=== PATIENT | female | born 1960 | race Caucasian/White ===

== ENCOUNTER 2020-05-02 19:15 | Inpatient (IN) | payer OTHER ==
[2020-05-02 20:12] LABS: #Basophils 0.1 10x3/uL (0.0-0.2); #Eosinphils 0.2 10x3/uL (0.0-0.5); #Monocytes 0.8 10x3/uL (0.0-1.1); #Neutrophils 5.4 10x3/uL (1.5-8.4); %Basophils 0.6 % (0.0-2.0); %Eosinophils 1.9 % (0.0-6.0); %Lymphocytes 28.7 % (18.0-47.0); %Monocytes 9.3 % (0.0-10.0); %Neutrophils 59.3 % (40.0-75.0); Hemoglobin 12.1 g/dL (12.0-15.5); Mean Corpuscular HGB CONC 35.7 g/dL (32.0-36.0); Mean Corpuscular Hemoglobin 32.4 pg (27.0-33.0); Mean Corpuscular Volume 90.6 fl (81.6-98.3); Mean Platelet Volume 8.2 fl (7.4-10.4); Platelet Count 426 10x3/uL (150-450); RBC Distribution Width 11.2 % (11.5-14.5); Red Blood Cell (RBC) Count 3.74 10x6/uL (3.90-5.03)
[2020-05-02 20:28] LABS: ALT (SGPT) 24 U/L (8-55); AST (SGOT) 30 U/L (5-34); Albumin 4.6 g/dL (3.5-5.0); Alkaline Phosphatase 100 U/L (40-110); Anion Gap 14 mmol/L (10-20); BUN (Urea Nitrogen) 17 mg/dL (9.8-20.1); Bilirubin, Total 0.4 mg/dL (0.2-1.2); Calc. Creatinine Clearance 0 mL/min (70-130); Calcium 9.8 mg/dL (7.8-10.44); Carbon Dioxide 26 mmol/L (22-29); Chloride 83 mmol/L (98-107); Globulin 3.4 g/dL (2.4-3.5); Glucose 251 mg/dL (70-105); Potassium 4.6 mmol/L (3.5-5.1)
[2020-05-02 20:35] LABS: Sodium 118 mmol/L (136-145)
[2020-05-02] MEDS ORDERED: Ketorolac Tromethamine 30 MG/ML VIAL ONE (20:50)
[2020-05-02] MEDS ORDERED: Ondansetron PF 4 MG/2 ML Vial ONE (20:50)
[2020-05-02 22:24] LABS: Bilirubin Neg (Negative); Blood, Urine Negative (Negative); Glucose, Urine (Dipstick) Normal (Negative); Ketone, Urine Negative (Negative); Leukocyte 100 (Negative); Nitrite Negative (Negative); Protein, Urine (Dipstick) 100 mg/dl (Neg-Trace); Specific Gravity, Urine 1.015 (1.002-1.036); Urobilinogen Normal mg/dL (Less than 2)
[2020-05-02 22:38] LABS: Clarity Hazy (Clear)
[2020-05-02 22:40] LABS: Bacteria/HPF 2+ HPF (None Seen); RBC/HPF 0-3 HPF (0-3)
[2020-05-02 22:42] LABS: Mucous/LPF Rare LPF (<2+)
[2020-05-02] MEDS ORDERED: Ondansetron PF 4 MG/2 ML Vial IVP PRN (23:30)
[2020-05-02] MEDS ORDERED: Calcium Carbonate 500 MG ChewTAB PO PRN (23:30)
[2020-05-02] MEDS ORDERED: Dextrose 5% in Water 1,000 ML IV PRN (23:30)
[2020-05-02] MEDS ORDERED: Dextrose 50% Abboject 50 ML SYRINGE SLOW IVP PRN (23:30)
[2020-05-02] MEDS ORDERED: Acetaminophen 325 MG TAB PO PRN (23:30)
[2020-05-02] MEDS ORDERED: Senokot S 8.6-50 MG TAB PO PRN (23:30)
[2020-05-02] MEDS ORDERED: Lorazepam 2 MG/ML VIAL SLOW IVP PRN (23:42)
[2020-05-02] MEDS ORDERED: Pantoprazole 40 MG VIAL IVP SCH (23:45)
[2020-05-03] MEDS: HumaLOG 300 UNITS/3 ML VIAL SC PRN ×5 (01:40→21:33)
[2020-05-03] MEDS: HYDROcodone/Acetaminophen 5/325 mg Tablet PO PRN ×4 (01:42→23:40)
[2020-05-03] MEDS: Zolpidem Tartrate 5 MG TAB PO PRN (01:42)
[2020-05-03 02:00] LABS: Amphetamine Not Detected (NotDetected); Barbiturates Screen Not Detected (NotDetected); Benzodiazepine Screen Not Detected (NotDetected); Cocaine Metabolite Screen Not Detected (NotDetected); Methadone Not Detected (NotDetected); Methamphetamine Not Detected (NotDetected); Opiate Screen Not Detected (NotDetected); Oxycodone Screen Not Detected (NotDetected); Phencyclidine (PCP) Not Detected (NotDetected); THC/Cannabinoid Screen Not Detected (NotDetected); Tricyclic Screen Not Detected (NotDetected)
[2020-05-03 06:37] LABS: Anion Gap 15 mmol/L (10-20); BUN (Urea Nitrogen) 17 mg/dL (9.8-20.1); Calc. Creatinine Clearance 85 mL/min (70-130); Calcium 9.3 mg/dL (7.8-10.44); Carbon Dioxide 24 mmol/L (22-29); Chloride 88 mmol/L (98-107); Glucose 177 mg/dL (70-105); Potassium 4.1 mmol/L (3.5-5.1); Sodium 123 mmol/L (136-145)
[2020-05-03] MEDS ORDERED: Apixaban 5 MG TAB PO SCH (09:00)
[2020-05-03] MEDS ORDERED: FLU VACC QS2020-21(6MOS UP)/PF 60 MCG/0.5 ML SYRINGE IM ONE (09:00)
[2020-05-03] MEDS: Multivitamin W/ Minerals 1 TAB PO SCH (09:37)
[2020-05-03] MEDS: levETIRAcetam 500 MG TAB PO SCH ×2 (09:37→21:33)
[2020-05-03] MEDS: Flecainide 50 MG TAB PO SCH (09:38)
[2020-05-03] MEDS: sulfaSALAzine 500 MG TAB PO SCH ×2 (09:38→21:33)
[2020-05-03] MEDS: DULoxetine 30 MG CAP PO SCH (09:39)
[2020-05-03] MEDS: Amlodipine 5 MG TAB PO SCH (09:39)
[2020-05-03] MEDS: Magnesium Oxide 400 MG TAB PO SCH (09:39)
[2020-05-03] MEDS: Cholecalciferol 1,000 UNITS (25 MCG) TAB PO SCH (09:40)
[2020-05-03] MEDS: Glimepiride 2 MG TAB PO SCH ×2 (09:40→21:32)
[2020-05-03] MEDS: Lantus 1000 UNITS/10 ML VIAL SC SCH ×2 (09:42→21:32)
[2020-05-03] MEDS: Pantoprazole 40 MG VIAL IVP SCH ×2 (09:42→21:33)
[2020-05-03 09:46] LABS: Potassium, Urine 16.4 mmol/L
[2020-05-03] MEDS: Losartan 25 MG TAB PO SCH (09:50)
[2020-05-03] MEDS: cloNIDine 0.1 MG TAB PO SCH ×3 (09:51→22:08)
[2020-05-03 10:33] LABS: Anion Gap 13 mmol/L (10-20); BUN (Urea Nitrogen) 17 mg/dL (9.8-20.1); Calc. Creatinine Clearance 87 mL/min (70-130); Calcium 9.6 mg/dL (7.8-10.44); Carbon Dioxide 26 mmol/L (22-29); Chloride 89 mmol/L (98-107); Glucose 175 mg/dL (70-105); Potassium 4.3 mmol/L (3.5-5.1); Sodium 124 mmol/L (136-145)
[2020-05-03] MEDS ORDERED: Communication Order-Pharmacy FS SCH (12:30)
[2020-05-03 13:11] LABS: SARS-CoV-2 PCR by NAA Not Detected (NotDetected)
[2020-05-03] MEDS: Clopidogrel Bisulfate 75 MG TAB PO SCH (21:31)
[2020-05-03] MEDS: Cyclobenzaprine 10 MG TAB PO SCH (21:32)
[2020-05-03] MEDS: Simvastatin 10 MG TAB PO SCH (21:33)
[2020-05-03] MEDS: Loratadine 10 MG TAB PO SCH (21:33)
[2020-05-04] MEDS: HYDROcodone/Acetaminophen 5/325 mg Tablet PO PRN ×2 (03:23→21:32)
[2020-05-04] MEDS ORDERED: Sodium Chloride 0.9% 1,000 ML IV SCH (08:00)
[2020-05-04] MEDS: Lantus 1000 UNITS/10 ML VIAL SC SCH ×2 (09:00→23:00)
[2020-05-04] MEDS: sulfaSALAzine 500 MG TAB PO SCH ×2 (09:33→21:31)
[2020-05-04] MEDS: Amlodipine 5 MG TAB PO SCH (09:33)
[2020-05-04] MEDS: Cholecalciferol 1,000 UNITS (25 MCG) TAB PO SCH (09:34)
[2020-05-04] MEDS: Losartan 25 MG TAB PO SCH (09:34)
[2020-05-04] MEDS: Magnesium Oxide 400 MG TAB PO SCH (09:34)
[2020-05-04] MEDS: DULoxetine 30 MG CAP PO SCH ×2 (09:34→10:14)
[2020-05-04] MEDS: levETIRAcetam 500 MG TAB PO SCH ×2 (09:34→21:31)
[2020-05-04] MEDS: Flecainide 50 MG TAB PO SCH (09:34)
[2020-05-04] MEDS: Multivitamin W/ Minerals 1 TAB PO SCH (09:34)
[2020-05-04] MEDS: Pantoprazole 40 MG VIAL IVP SCH ×2 (09:34→21:31)
[2020-05-04] MEDS: cloNIDine 0.1 MG TAB PO SCH ×3 (09:34→21:32)
[2020-05-04 10:31] LABS: Anion Gap 14 mmol/L (10-20); BUN (Urea Nitrogen) 25 mg/dL (9.8-20.1); Calc. Creatinine Clearance 72 mL/min (70-130); Calcium 9.9 mg/dL (7.8-10.44); Carbon Dioxide 29 mmol/L (22-29); Chloride 91 mmol/L (98-107); Glucose 208 mg/dL (70-105); Potassium 5.7 mmol/L (3.5-5.1); Sodium 128 mmol/L (136-145)
[2020-05-04] MEDS ORDERED: Nitroglycerin 50 MG/250 ML BOT 0 ML ONE (12:29)
[2020-05-04] MEDS ORDERED: Adenosine 6 MG/2 ML VIAL ONE (12:29)
[2020-05-04] MEDS ORDERED: Heparin 10,000 UNITS/ 10 ML VIAL ONE (12:29)
[2020-05-04] MEDS ORDERED: Lidocaine 1% (PF) 30 ML VIAL ONE (12:31)
[2020-05-04] MEDS ORDERED: Midazolam HCl 5 mg/5 ml Vial ONE (12:31)
[2020-05-04] MEDS ORDERED: Fentanyl 250 MCG/5 ML VIAL ONE (12:31)
[2020-05-04] MEDS ORDERED: Acetaminophen/Codeine 30-300mg Tablet PO PRN ×2 (13:37)
[2020-05-04] MEDS ORDERED: Nitroglycerin 0.4 MG TAB (25 Tab Bottle) SL PRN (13:37)
[2020-05-04] MEDS: Glimepiride 2 MG TAB PO SCH ×2 (17:00→21:31)
[2020-05-04] MEDS: HumaLOG 300 UNITS/3 ML VIAL SC PRN ×2 (18:10→21:33)
[2020-05-04] MEDS: Loratadine 10 MG TAB PO SCH (21:31)
[2020-05-04] MEDS: Cyclobenzaprine 10 MG TAB PO SCH (21:32)
[2020-05-04] MEDS: Simvastatin 10 MG TAB PO SCH (21:32)
[2020-05-04] MEDS: Clopidogrel Bisulfate 75 MG TAB PO SCH (21:32)
[2020-05-04] MEDS: Zolpidem Tartrate 5 MG TAB PO PRN (21:38)
[2020-05-05] MEDS: HYDROcodone/Acetaminophen 5/325 mg Tablet PO PRN ×2 (01:22→06:09)
[2020-05-05] MEDS: HumaLOG 300 UNITS/3 ML VIAL SC PRN ×2 (06:10→12:21)
[2020-05-05 07:11] LABS: #Eosinphils 0.2 10x3/uL (0.0-0.5); #Monocytes 0.9 10x3/uL (0.0-1.1); #Neutrophils 5.1 10x3/uL (1.5-8.4); %Basophils 0.5 % (0.0-2.0); %Eosinophils 1.7 % (0.0-6.0); %Lymphocytes 28.8 % (18.0-47.0); %Monocytes 10.4 % (0.0-10.0); %Neutrophils 58.3 % (40.0-75.0); Hemoglobin 10.7 g/dL (12.0-15.5); Mean Corpuscular HGB CONC 33.8 g/dL (32.0-36.0); Mean Corpuscular Hemoglobin 32.5 pg (27.0-33.0); Mean Corpuscular Volume 96.4 fl (81.6-98.3); Mean Platelet Volume 8.6 fl (7.4-10.4); Platelet Count 390 10x3/uL (150-450); RBC Distribution Width 11.7 % (11.5-14.5); Red Blood Cell (RBC) Count 3.29 10x6/uL (3.90-5.03); White Blood Cell (WBC) Count 8.7 10x3/uL (3.5-10.5)
[2020-05-05 07:32] LABS: Anion Gap 14 mmol/L (10-20); BUN (Urea Nitrogen) 28 mg/dL (9.8-20.1); Calc. Creatinine Clearance 74 mL/min (70-130); Calcium 9.3 mg/dL (7.8-10.44); Carbon Dioxide 23 mmol/L (22-29); Chloride 98 mmol/L (98-107); Glucose 179 mg/dL (70-105); Potassium 4.6 mmol/L (3.5-5.1); Sodium 130 mmol/L (136-145)
[2020-05-05] MEDS ORDERED: Losartan Potassium 50 MG TAB PO SCH (09:00)
[2020-05-05] MEDS ORDERED: Valsartan 80 MG TAB PO SCH (09:00)
[2020-05-05] MEDS: cloNIDine 0.1 MG TAB PO SCH (09:45)
[2020-05-05] MEDS: sulfaSALAzine 500 MG TAB PO SCH (09:45)
[2020-05-05] MEDS: Glimepiride 2 MG TAB PO SCH (09:45)
[2020-05-05] MEDS: Lantus 1000 UNITS/10 ML VIAL SC SCH (09:45)
[2020-05-05] MEDS: Cholecalciferol 1,000 UNITS (25 MCG) TAB PO SCH (09:45)
[2020-05-05] MEDS: Flecainide 50 MG TAB PO SCH (09:45)
[2020-05-05] MEDS: Multivitamin W/ Minerals 1 TAB PO SCH (09:45)
[2020-05-05] MEDS: levETIRAcetam 500 MG TAB PO SCH (09:45)
[2020-05-05] MEDS: Pantoprazole 40 MG VIAL IVP SCH (09:45)
[2020-05-05] MEDS: Magnesium Oxide 400 MG TAB PO SCH (09:45)
[2020-05-05] MEDS: Amlodipine 5 MG TAB PO SCH (10:01)
[2020-05-05 13:54] VITALS: TEMP 98.1
[2020-05-05 15:24] VITALS: BP 105/57
== END 2020-05-05 16:05 | disposition home or self-care (01) | DRG 641 ==
LOC: CSHERS 19:15 → CSHTELE 23:30 → UNDOADMOB 05-03 00:41 → OBSVTOIN 05-03 00:41 → CSHTELE 05-03 00:41 → INTOOBSV 05-03 00:41
PROVIDERS: ADMIT Student in an Organized Health Care Education/Training Program; ATTEND Family Medicine
PROC: 4A023N7 Measurement of Cardiac Sampling and Pressure, Left Heart, Percutaneous Approach (ICD-10-PCS; principal; 2020-05-04)
PROC: B2111ZZ Fluoroscopy of Multiple Coronary Arteries using Low Osmolar Contrast (ICD-10-PCS; 2020-05-04)
PROC: B2161ZZ Fluoroscopy of Right and Left Heart using Low Osmolar Contrast (ICD-10-PCS; 2020-05-04)
PROC: B4181ZZ Fluoroscopy of Bilateral Renal Arteries using Low Osmolar Contrast (ICD-10-PCS; 2020-05-04)
DX: E87.1 Hypo-osmolality and hyponatremia (principal); K50.90 Crohn's disease, unspecified, without complications; Z68.42 Body mass index [BMI] 45.0-49.9, adult; I13.0 Hypertensive heart and chronic kidney disease with heart failure and stage 1 through stage 4 chronic kidney disease, or unspecified chronic kidney disease; I50.32 Chronic diastolic (congestive) heart failure; I69.954 Hemiplegia and hemiparesis following unspecified cerebrovascular disease affecting left non-dominant side; I25.110 Atherosclerotic heart disease of native coronary artery with unstable angina pectoris; Z20.822 Contact with and (suspected) exposure to COVID-19; I48.0 Paroxysmal atrial fibrillation; G47.33 Obstructive sleep apnea (adult) (pediatric); G40.909 Epilepsy, unspecified, not intractable, without status epilepticus; E66.01 Morbid (severe) obesity due to excess calories; E11.22 Type 2 diabetes mellitus with diabetic chronic kidney disease; N18.30 Chronic kidney disease, stage 3 unspecified; F41.9 Anxiety disorder, unspecified; F32.9 Major depressive disorder, single episode, unspecified; Z91.040 Latex allergy status; Z79.4 Long term (current) use of insulin; Z79.899 Other long term (current) drug therapy; M79.7 Fibromyalgia; R11.2 Nausea with vomiting, unspecified; K44.9 Diaphragmatic hernia without obstruction or gangrene; M45.9 Ankylosing spondylitis of unspecified sites in spine; E78.2 Mixed hyperlipidemia; I70.1 Atherosclerosis of renal artery
CPT/HCPCS: 36245; 36252; 36415; 36416; 74176; 76705; 80048; 80053; 80306; 81003; 81015; 82436; 83036; 83690; 83930; 83935; 84133; 84300; 84443; 84484; 85025; 87086; 87635; 93005; 93306; 93458; 96361; 96374; 96375; 99152; C1760; C9113; J0153; J1644; J1815; J1885; J2001; J2250; J2405; J3010; U0003; U0005

== ENCOUNTER 2021-08-15 10:19 | Observation (INO) | payer OTHER ==
[2021-08-15 11:53] LABS: #Basophils 0.1 10x3/uL (0.0-0.2); #Eosinphils 0.2 10x3/uL (0.0-0.5); #Monocytes 0.9 10x3/uL (0.0-1.1); #Neutrophils 8.6 10x3/uL (1.5-8.4); %Basophils 0.6 % (0.0-2.0); %Eosinophils 1.4 % (0.0-6.0); %Lymphocytes 14.7 % (18.0-47.0); %Monocytes 7.7 % (0.0-10.0); %Neutrophils 75.3 % (40.0-75.0); Hemoglobin 11.8 g/dL (12.0-15.5); Mean Corpuscular HGB CONC 35.6 g/dL (32.0-36.0); Mean Corpuscular Hemoglobin 33.2 pg (27.0-33.0); Mean Corpuscular Volume 93.2 fl (81.6-98.3); Mean Platelet Volume 8.6 fl (7.4-10.4); Platelet Count 424 10x3/uL (150-450); RBC Distribution Width 12.2 % (11.5-14.5); Red Blood Cell (RBC) Count 3.55 10x6/uL (3.90-5.03); White Blood Cell (WBC) Count 11.4 10x3/uL (3.5-10.5)
[2021-08-15 12:11] LABS: Bilirubin Neg (Negative); Blood, Urine Negative (Negative); Clarity Clear (Clear); Glucose, Urine (Dipstick) Normal (Negative); Ketone, Urine Negative (Negative); Leukocyte 25 (Negative); Nitrite Negative (Negative); Protein, Urine (Dipstick) 100 mg/dl (Neg-Trace); Urobilinogen Normal mg/dL (Less than 2)
[2021-08-15 12:12] LABS: ALT (SGPT) 11 U/L (8-55); AST (SGOT) 16 U/L (5-34); Albumin 4.5 g/dL (3.4-4.8); Alkaline Phosphatase 111 U/L (40-110); Anion Gap 16 mmol/L (10-20); BUN (Urea Nitrogen) 27 mg/dL (9.8-20.1); Bilirubin, Total 0.2 mg/dL (0.2-1.2); Calc. Creatinine Clearance 0 mL/min (70-130); Calcium 9.9 mg/dL (7.8-10.44); Carbon Dioxide 25 mmol/L (23-31); Chloride 90 mmol/L (98-107); Estimated GFR 36; Globulin 3.6 g/dL (2.4-3.5); Glucose 218 mg/dL (80-115); Potassium 5.1 mmol/L (3.5-5.1); Protein, Total 8.1 g/dL (5.8-8.1); Sodium 126 mmol/L (136-145)
[2021-08-15 12:17] LABS: RBC/HPF 0-3 HPF (0-3)
[2021-08-15 12:18] LABS: Bacteria/HPF Rare-Few HPF (None Seen)
[2021-08-15 14:48] LABS: SARS-CoV-2 NAA Rapid Test Not Detected (NotDetected)
[2021-08-15 16:26] LABS: Anion Gap 18 mmol/L (10-20); BUN (Urea Nitrogen) 27 mg/dL (9.8-20.1); Calc. Creatinine Clearance 0 mL/min (70-130); Calcium 9.8 mg/dL (7.8-10.44); Carbon Dioxide 22 mmol/L (23-31); Chloride 90 mmol/L (98-107); Estimated GFR 38; Glucose 180 mg/dL (80-115); Potassium 4.8 mmol/L (3.5-5.1); Sodium 125 mmol/L (136-145)
[2021-08-15 16:29] LABS: Troponin I Less than 0.010 ng/mL (< 0.028)
[2021-08-15] MEDS ORDERED: Acetaminophen 650 MG Suppository PR PRN (17:17)
[2021-08-15] MEDS ORDERED: Cosyntropin 250 MCG VIAL SLOW IVP SCH (17:30)
[2021-08-15 18:02] LABS: Sodium 129 mmol/L (136-145)
[2021-08-15] MEDS ORDERED: Dextrose 5% in Water 1,000 ML IV PRN (18:06)
[2021-08-15] MEDS ORDERED: Dextrose 50% Abboject 50 ML SYRINGE SLOW IVP PRN (18:06)
[2021-08-15 18:23] LABS: Troponin I Less than 0.010 ng/mL (< 0.028)
[2021-08-15 19:35] VITALS: BMI 46.3
[2021-08-15] MEDS ORDERED: levETIRAcetam 500 MG TAB PO SCH (21:00)
[2021-08-15] MEDS ORDERED: Sodium Chloride 0.9% 1,000 ML ONE (21:17)
[2021-08-15] MEDS: Simvastatin 10 MG TAB PO SCH (21:21)
[2021-08-15] MEDS: Flecainide 50 MG TAB PO SCH (21:21)
[2021-08-15] MEDS: levETIRAcetam 500 MG TAB PO SCH (21:22)
[2021-08-15] MEDS: Lantus 1000 UNITS/10 ML VIAL SC SCH (21:23)
[2021-08-15] MEDS: Insulin Regular 300 UNITS/3 ML VIAL SC PRN (21:25)
[2021-08-15] MEDS: Sodium Chloride 0.9% 1,000 ML IV SCH (21:27)
[2021-08-15] MEDS: Acetaminophen 325 MG TAB PO PRN (21:42)
[2021-08-15] MEDS ORDERED: Zolpidem Tartrate 5 MG TAB PO SCH (23:15)
[2021-08-15 23:46] LABS: Sodium 132 mmol/L (136-145)
[2021-08-16 05:44] LABS: #Basophils 0.1 10x3/uL (0.0-0.2); #Eosinphils 0.1 10x3/uL (0.0-0.5); #Monocytes 0.7 10x3/uL (0.0-1.1); #Neutrophils 8.2 10x3/uL (1.5-8.4); %Basophils 0.4 % (0.0-2.0); %Eosinophils 0.6 % (0.0-6.0); %Lymphocytes 20.9 % (18.0-47.0); %Monocytes 6.2 % (0.0-10.0); %Neutrophils 71.5 % (40.0-75.0); Anion Gap 18 mmol/L (10-20); BUN (Urea Nitrogen) 27 mg/dL (9.8-20.1); Calc. Creatinine Clearance 74 mL/min (70-130); Calcium 9.4 mg/dL (7.8-10.44); Carbon Dioxide 22 mmol/L (23-31); Chloride 95 mmol/L (98-107); Estimated GFR 38; Glucose 227 mg/dL (80-115); Hemoglobin 11.1 g/dL (12.0-15.5); Mean Corpuscular HGB CONC 35.6 g/dL (32.0-36.0); Mean Corpuscular Hemoglobin 32.8 pg (27.0-33.0); Mean Corpuscular Volume 92.3 fl (81.6-98.3); Mean Platelet Volume 8.7 fl (7.4-10.4); Platelet Count 416 10x3/uL (150-450); Potassium 4.5 mmol/L (3.5-5.1); Red Blood Cell (RBC) Count 3.38 10x6/uL (3.90-5.03); Sodium 130 mmol/L (136-145); White Blood Cell (WBC) Count 11.4 10x3/uL (3.5-10.5)
[2021-08-16] MEDS: Insulin Regular 300 UNITS/3 ML VIAL SC PRN ×4 (07:38→22:43)
[2021-08-16] MEDS: Lantus 1000 UNITS/10 ML VIAL SC SCH ×2 (09:47→22:42)
[2021-08-16] MEDS: Clopidogrel Bisulfate 75 MG TAB PO SCH (09:48)
[2021-08-16] MEDS: Flecainide 50 MG TAB PO SCH ×2 (09:48→22:38)
[2021-08-16] MEDS: levETIRAcetam 500 MG TAB PO SCH ×2 (09:48→22:37)
[2021-08-16] MEDS: Acetaminophen 325 MG TAB PO PRN ×2 (10:07→19:40)
[2021-08-16 11:55] LABS: Sodium 131 mmol/L (136-145)
[2021-08-16] MEDS: Sodium Chloride 0.9% 1,000 ML IV SCH (16:26)
[2021-08-16] MEDS ORDERED: Metoprolol Tartrate 50 MG TAB PO SCH (17:00)
[2021-08-16] MEDS ORDERED: Zolpidem Tartrate 5 MG TAB PO SCH (22:30)
[2021-08-16] MEDS: Simvastatin 10 MG TAB PO SCH (22:38)
[2021-08-16] MEDS: Metoprolol Tartrate 25 MG TAB PO SCH (22:39)
[2021-08-17 05:40] LABS: #Basophils 0.1 10x3/uL (0.0-0.2); #Eosinphils 0.2 10x3/uL (0.0-0.5); #Monocytes 0.8 10x3/uL (0.0-1.1); #Neutrophils 5.4 10x3/uL (1.5-8.4); %Basophils 0.6 % (0.0-2.0); %Eosinophils 1.9 % (0.0-6.0); %Lymphocytes 31.5 % (18.0-47.0); %Monocytes 8.5 % (0.0-10.0); %Neutrophils 57.1 % (40.0-75.0); Mean Corpuscular HGB CONC 35.6 g/dL (32.0-36.0); Mean Corpuscular Hemoglobin 33.1 pg (27.0-33.0); Mean Corpuscular Volume 93.1 fl (81.6-98.3); Mean Platelet Volume 8.9 fl (7.4-10.4); Platelet Count 359 10x3/uL (150-450); Red Blood Cell (RBC) Count 3.32 10x6/uL (3.90-5.03); White Blood Cell (WBC) Count 9.4 10x3/uL (3.5-10.5)
[2021-08-17 05:53] LABS: Anion Gap 16 mmol/L (10-20); BUN (Urea Nitrogen) 24 mg/dL (9.8-20.1); Calc. Creatinine Clearance 93 mL/min (70-130); Calcium 9.2 mg/dL (7.8-10.44); Carbon Dioxide 22 mmol/L (23-31); Chloride 98 mmol/L (98-107); Estimated GFR 50; Glucose 202 mg/dL (80-115); Potassium 4.2 mmol/L (3.5-5.1); Sodium 132 mmol/L (136-145)
[2021-08-17] MEDS: Insulin Regular 300 UNITS/3 ML VIAL SC PRN ×2 (06:36→13:29)
[2021-08-17] MEDS: Lantus 1000 UNITS/10 ML VIAL SC SCH (08:51)
[2021-08-17] MEDS: Metoprolol Tartrate 25 MG TAB PO SCH (08:52)
[2021-08-17] MEDS: Clopidogrel Bisulfate 75 MG TAB PO SCH (08:52)
[2021-08-17] MEDS: levETIRAcetam 500 MG TAB PO SCH (08:52)
[2021-08-17] MEDS: Flecainide 50 MG TAB PO SCH (08:52)
[2021-08-17 12:54] VITALS: BP 174/84; TEMP 98.3
== END 2021-08-17 15:03 | disposition home or self-care (01) ==
LOC: CSHERS 10:19 → CSHTELE 13:49 → UNDOADMOB 19:28 → CSHTELE 19:28
PROVIDERS: ADMIT Internal Medicine; ATTEND Internal Medicine
DX: R55 Syncope and collapse (principal); R42 Dizziness and giddiness; E87.1 Hypo-osmolality and hyponatremia; I13.0 Hypertensive heart and chronic kidney disease with heart failure and stage 1 through stage 4 chronic kidney disease, or unspecified chronic kidney disease; E11.22 Type 2 diabetes mellitus with diabetic chronic kidney disease; N18.30 Chronic kidney disease, stage 3 unspecified; I50.30 Unspecified diastolic (congestive) heart failure; N17.9 Acute kidney failure, unspecified; I25.118 Atherosclerotic heart disease of native coronary artery with other forms of angina pectoris; I48.0 Paroxysmal atrial fibrillation; E78.2 Mixed hyperlipidemia; G40.909 Epilepsy, unspecified, not intractable, without status epilepticus; K50.90 Crohn's disease, unspecified, without complications; G47.33 Obstructive sleep apnea (adult) (pediatric); E11.42 Type 2 diabetes mellitus with diabetic polyneuropathy; E11.51 Type 2 diabetes mellitus with diabetic peripheral angiopathy without gangrene; E11.43 Type 2 diabetes mellitus with diabetic autonomic (poly)neuropathy; G31.84 Mild cognitive impairment of uncertain or unknown etiology; I49.5 Sick sinus syndrome; Z86.16 Personal history of COVID-19; Z86.73 Personal history of transient ischemic attack (TIA), and cerebral infarction without residual deficits; Z91.19 Patient's noncompliance with other medical treatment and regimen; Z79.02 Long term (current) use of antithrombotics/antiplatelets; Z79.4 Long term (current) use of insulin; Z79.84 Long term (current) use of oral hypoglycemic drugs; Z79.899 Other long term (current) drug therapy; Z88.8 Allergy status to other drugs, medicaments and biological substances; Z91.040 Latex allergy status; Z95.5 Presence of coronary angioplasty implant and graft; Z98.1 Arthrodesis status; Z20.822 Contact with and (suspected) exposure to COVID-19
CPT/HCPCS: 36415; 36416; 70450; 71045; 72125; 72170; 80048; 80053; 80400; 81003; 81015; 83880; 83930; 83935; 84300; 84443; 84484; 84540; 84560; 85025; 87077; 87086; 87186; 93005; 94760; G0378; J0834; J1815; J7050; U0002

== ENCOUNTER 2021-08-20 13:57 | Outpatient (CLI) | payer OTHER | END 2021-08-20 13:58 | disposition home or self-care (01) | LOC: CSHMAMMO 13:57 | PROVIDERS: ATTEND Family Medicine | DX: Z12.31 Encounter for screening mammogram for malignant neoplasm of breast (principal); N63.20 Unspecified lump in the left breast, unspecified quadrant; Z80.3 Family history of malignant neoplasm of breast | CPT/HCPCS: 77063; 77067 ==

== ENCOUNTER 2021-08-27 12:38 | Outpatient (CLI) | payer OTHER | END 2021-08-27 12:39 | disposition home or self-care (01) | LOC: CSHULT 12:38 | PROVIDERS: ATTEND Family Medicine | DX: N63.20 Unspecified lump in the left breast, unspecified quadrant (principal) ==

== ENCOUNTER 2021-10-06 16:52 | Emergency (ER) | payer OTHER ==
[2021-10-06 17:31] LABS: #Basophils 0.1 10x3/uL (0.0-0.2); #Eosinphils 0.2 10x3/uL (0.0-0.5); #Monocytes 0.8 10x3/uL (0.0-1.1); %Basophils 0.7 % (0.0-2.0); %Eosinophils 1.8 % (0.0-6.0); %Lymphocytes 29.5 % (18.0-47.0); %Monocytes 7.8 % (0.0-10.0); %Neutrophils 59.8 % (40.0-75.0); Mean Corpuscular HGB CONC 36.1 g/dL (32.0-36.0); Mean Corpuscular Hemoglobin 33.5 pg (27.0-33.0); Mean Corpuscular Volume 92.7 fl (81.6-98.3); Mean Platelet Volume 8.9 fl (7.4-10.4); Platelet Count 390 10x3/uL (150-450); RBC Distribution Width 11.3 % (11.5-14.5); Red Blood Cell (RBC) Count 3.58 10x6/uL (3.90-5.03); White Blood Cell (WBC) Count 10.1 10x3/uL (3.5-10.5)
[2021-10-06 17:34] LABS: ALT (SGPT) 17 U/L (8-55); AST (SGOT) 15 U/L (5-34); Albumin 4.6 g/dL (3.4-4.8); Alkaline Phosphatase 88 U/L (40-110); Anion Gap 16 mmol/L (10-20); BUN (Urea Nitrogen) 23 mg/dL (9.8-20.1); Bilirubin, Total 0.3 mg/dL (0.2-1.2); Calc. Creatinine Clearance 0 mL/min (70-130); Calcium 9.8 mg/dL (7.8-10.44); Carbon Dioxide 22 mmol/L (23-31); Chloride 93 mmol/L (98-107); Estimated GFR 44; Globulin 3.2 g/dL (2.4-3.5); Glucose 229 mg/dL (80-115); Potassium 5.2 mmol/L (3.5-5.1); Protein, Total 7.8 g/dL (5.8-8.1); Sodium 126 mmol/L (136-145)
== END 2021-10-06 18:40 | disposition home or self-care (01) ==
LOC: CSHERS 16:52
DX: I12.9 Hypertensive chronic kidney disease with stage 1 through stage 4 chronic kidney disease, or unspecified chronic kidney disease (principal); N18.4 Chronic kidney disease, stage 4 (severe); R29.810 Facial weakness; I48.91 Unspecified atrial fibrillation; E11.9 Type 2 diabetes mellitus without complications; E78.5 Hyperlipidemia, unspecified; Z86.73 Personal history of transient ischemic attack (TIA), and cerebral infarction without residual deficits; Z79.4 Long term (current) use of insulin
CPT/HCPCS: 36416; 70450; 71045; 80053; 84484; 85025; 93005

== ENCOUNTER 2021-10-10 13:01 | Observation (INO) | payer OTHER ==
[2021-10-10] MEDS ORDERED: Iopamidol 370 76% 100 ML VIAL ONE (13:08)
[2021-10-10 13:57] LABS: #Basophils 0.1 10x3/uL (0.0-0.2); #Eosinphils 0.1 10x3/uL (0.0-0.5); #Monocytes 0.7 10x3/uL (0.0-1.1); #Neutrophils 6.3 10x3/uL (1.5-8.4); %Basophils 0.8 % (0.0-2.0); %Eosinophils 1.3 % (0.0-6.0); %Lymphocytes 21.4 % (18.0-47.0); %Monocytes 7.2 % (0.0-10.0); Hemoglobin 12.1 g/dL (12.0-15.5); Mean Corpuscular HGB CONC 35.4 g/dL (32.0-36.0); Mean Corpuscular Hemoglobin 32.9 pg (27.0-33.0); Mean Corpuscular Volume 92.9 fl (81.6-98.3); Mean Platelet Volume 9.4 fl (7.4-10.4); Platelet Count 377 10x3/uL (150-450); RBC Distribution Width 11.9 % (11.5-14.5); Red Blood Cell (RBC) Count 3.68 10x6/uL (3.90-5.03); White Blood Cell (WBC) Count 9.1 10x3/uL (3.5-10.5)
[2021-10-10 14:29] LABS: ALT (SGPT) 19 U/L (8-55); AST (SGOT) 28 U/L (5-34); Acetaminophen Less than 10.0 mcg/mL (10.0-30.0); Albumin 4.1 g/dL (3.4-4.8); Alcohol Less than 10 mg/dL (Less than 10); Alkaline Phosphatase 123 U/L (40-110); Anion Gap 15 mmol/L (10-20); BUN (Urea Nitrogen) 23 mg/dL (9.8-20.1); Bilirubin, Total 0.2 mg/dL (0.2-1.2); Calc. Creatinine Clearance 0 mL/min (70-130); Calcium 9.2 mg/dL (7.8-10.44); Carbon Dioxide 19 mmol/L (23-31); Chloride 99 mmol/L (98-107); Estimated GFR 46; Globulin 3.8 g/dL (2.4-3.5); Glucose 314 mg/dL (80-115); Potassium 5.1 mmol/L (3.5-5.1); Protein, Total 7.9 g/dL (5.8-8.1); Salicylate Less than 8.0 mg/dL (15.0-30.0); Sodium 128 mmol/L (136-145)
[2021-10-10 14:38] LABS: Bilirubin Neg (Negative); Blood, Urine Negative (Negative); Clarity Clear (Clear); Glucose, Urine (Dipstick) 100 mg/dL (Negative); Ketone, Urine Negative (Negative); Leukocyte 100 (Negative); Nitrite Negative (Negative); Protein, Urine (Dipstick) 30 mg/dl (Neg-Trace); Specific Gravity, Urine 1.005 (1.002-1.036); Urobilinogen Normal mg/dL (Less than 2)
[2021-10-10 14:56] LABS: SARS-CoV-2 NAA Rapid Test Not Detected (NotDetected)
[2021-10-10 14:56] LABS: Bacteria/HPF 2+ HPF (None Seen); RBC/HPF 0-3 HPF (0-3); Squamous Epithelial 0-3 HPF (0-3)
[2021-10-10] MEDS ORDERED: Aspirin 325 MG TAB ONE (16:00)
[2021-10-10 16:45] LABS: Lactic Acid 1.7 mmol/L (0.5-2.2)
[2021-10-10] MEDS ORDERED: Ondansetron PF 4 MG/2 ML Vial IVP PRN (16:47)
[2021-10-10] MEDS ORDERED: Acetaminophen 325 MG TAB PO PRN (16:47)
[2021-10-10] MEDS ORDERED: Ondansetron ODT 4 MG TAB PO PRN (16:47)
[2021-10-10 18:24] VITALS: BMI 43.9
[2021-10-10] MEDS ORDERED: Dextrose 5% in Water 1,000 ML IV PRN (20:06)
[2021-10-10] MEDS ORDERED: Dextrose 50% Abboject 50 ML SYRINGE SLOW IVP PRN (20:06)
[2021-10-10 20:07] LABS: Hemoglobin A1c 8.8 % (4.0-6.0)
[2021-10-10] MEDS ORDERED: Lantus 1000 UNITS/10 ML VIAL SC SCH (20:30)
[2021-10-10] MEDS ORDERED: Flecainide 50 MG TAB PO SCH (20:30)
[2021-10-10] MEDS ORDERED: levETIRAcetam 500 MG TAB PO SCH (20:30)
[2021-10-10] MEDS: Atorvastatin Calcium 40 MG TAB PO SCH (21:00)
[2021-10-10] MEDS: Heparin 5,000 UNITS/ML VIAL SC SCH (21:04)
[2021-10-11] MEDS: HumaLOG 300 UNITS/3 ML VIAL SC PRN ×2 (05:38→17:53)
[2021-10-11] MEDS ORDERED: traMADol HCl 50 MG TAB PO PRN (07:17)
[2021-10-11 07:22] LABS: #Basophils 0.1 10x3/uL (0.0-0.2); #Eosinphils 0.2 10x3/uL (0.0-0.5); #Monocytes 0.9 10x3/uL (0.0-1.1); #Neutrophils 5.2 10x3/uL (1.5-8.4); %Basophils 0.7 % (0.0-2.0); %Lymphocytes 31.7 % (18.0-47.0); %Monocytes 9.4 % (0.0-10.0); %Neutrophils 55.9 % (40.0-75.0); Hemoglobin 11.6 g/dL (12.0-15.5); Mean Corpuscular HGB CONC 35.6 g/dL (32.0-36.0); Mean Corpuscular Hemoglobin 32.8 pg (27.0-33.0); Mean Corpuscular Volume 92.1 fl (81.6-98.3); Platelet Count 351 10x3/uL (150-450); RBC Distribution Width 11.9 % (11.5-14.5); Red Blood Cell (RBC) Count 3.54 10x6/uL (3.90-5.03); White Blood Cell (WBC) Count 9.4 10x3/uL (3.5-10.5)
[2021-10-11 07:36] LABS: Anion Gap 15 mmol/L (10-20); BUN (Urea Nitrogen) 23 mg/dL (9.8-20.1); Calc. Creatinine Clearance 76 mL/min (70-130); Calcium 9.5 mg/dL (7.8-10.44); Carbon Dioxide 25 mmol/L (23-31); Cardiac Risk 6.3 (Less than 4.5); Chloride 100 mmol/L (98-107); Cholesterol 207 mg/dl (< 200 Desired); Estimated GFR 40; Glucose 234 mg/dL (80-115); HDL Cholesterol 33 mg/dL (>60 Neg Risk); LDL Cholesterol, Calculated 111 mg/dL; Potassium 4.7 mmol/L (3.5-5.1); Sodium 135 mmol/L (136-145); Triglycerides 316 mg/dL (Less than 150)
[2021-10-11] MEDS: hydrALAZINE 25 MG TAB PO PRN (09:47)
[2021-10-11] MEDS: Amlodipine 5 MG TAB PO SCH (09:47)
[2021-10-11] MEDS: Clopidogrel Bisulfate 75 MG TAB PO SCH (09:47)
[2021-10-11] MEDS: Losartan 25 MG TAB PO SCH (09:47)
[2021-10-11] MEDS: Flecainide 50 MG TAB PO SCH ×2 (09:47→22:10)
[2021-10-11] MEDS: levETIRAcetam 500 MG TAB PO SCH ×2 (09:47→22:10)
[2021-10-11] MEDS: Aspirin 81 mg Enteric Coated Tablet PO SCH (09:48)
[2021-10-11] MEDS: Bupropion 150 MG XL TAB PO SCH (09:52)
[2021-10-11] MEDS: Heparin 5,000 UNITS/ML VIAL SC SCH ×2 (09:52→22:07)
[2021-10-11] MEDS: Glimepiride 2 MG TAB PO SCH (09:52)
[2021-10-11] MEDS: Lantus 1000 UNITS/10 ML VIAL SC SCH ×2 (09:53→22:05)
[2021-10-11] MEDS: HumaLOG 300 UNITS/3 ML VIAL SC SCH ×3 (09:53→22:05)
[2021-10-11] MEDS ORDERED: Lidocaine 1% PF 5 ML VIAL ONE (12:15)
[2021-10-11] MEDS ORDERED: DULoxetine 30 MG CAP PO SCH (21:00)
[2021-10-11] MEDS ORDERED: Zolpidem Tartrate 5 MG TAB PO SCH (21:00)
[2021-10-11] MEDS ORDERED: Magnesium Oxide 400 MG TAB PO SCH (21:00)
[2021-10-11] MEDS ORDERED: Cyclobenzaprine 10 MG TAB PO SCH (21:00)
[2021-10-11] MEDS ORDERED: Loratadine 10 MG TAB PO SCH (21:00)
[2021-10-11] MEDS: Atorvastatin Calcium 40 MG TAB PO SCH (22:09)
[2021-10-12 06:10] LABS: #Basophils 0.1 10x3/uL (0.0-0.2); #Eosinphils 0.1 10x3/uL (0.0-0.5); #Monocytes 0.9 10x3/uL (0.0-1.1); #Neutrophils 6.8 10x3/uL (1.5-8.4); %Basophils 0.6 % (0.0-2.0); %Eosinophils 1.3 % (0.0-6.0); %Lymphocytes 23.2 % (18.0-47.0); %Monocytes 8.9 % (0.0-10.0); %Neutrophils 65.7 % (40.0-75.0); Hemoglobin 11.2 g/dL (12.0-15.5); Mean Corpuscular Hemoglobin 32.3 pg (27.0-33.0); Mean Corpuscular Volume 92.2 fl (81.6-98.3); Mean Platelet Volume 9.1 fl (7.4-10.4); Platelet Count 343 10x3/uL (150-450); RBC Distribution Width 11.8 % (11.5-14.5); Red Blood Cell (RBC) Count 3.47 10x6/uL (3.90-5.03); White Blood Cell (WBC) Count 10.4 10x3/uL (3.5-10.5)
[2021-10-12 06:19] LABS: Anion Gap 15 mmol/L (10-20); BUN (Urea Nitrogen) 27 mg/dL (9.8-20.1); Calc. Creatinine Clearance 73 mL/min (70-130); Calcium 9.9 mg/dL (7.8-10.44); Carbon Dioxide 24 mmol/L (23-31); Chloride 98 mmol/L (98-107); Estimated GFR 38; Glucose 230 mg/dL (80-115); Magnesium 1.7 mg/dL (1.6-2.6); Potassium 4.7 mmol/L (3.5-5.1); Sodium 132 mmol/L (136-145)
[2021-10-12] MEDS: HumaLOG 300 UNITS/3 ML VIAL SC PRN ×2 (06:54→11:31)
[2021-10-12] MEDS: levETIRAcetam 500 MG TAB PO SCH (09:34)
[2021-10-12] MEDS: Flecainide 50 MG TAB PO SCH (09:34)
[2021-10-12] MEDS: Bupropion 150 MG XL TAB PO SCH (09:34)
[2021-10-12] MEDS: Clopidogrel Bisulfate 75 MG TAB PO SCH (09:34)
[2021-10-12] MEDS: Heparin 5,000 UNITS/ML VIAL SC SCH (09:34)
[2021-10-12] MEDS: Aspirin 81 mg Enteric Coated Tablet PO SCH (09:34)
[2021-10-12] MEDS: Glimepiride 2 MG TAB PO SCH (09:35)
[2021-10-12] MEDS: Amlodipine 5 MG TAB PO SCH (09:35)
[2021-10-12] MEDS: hydrALAZINE 25 MG TAB PO PRN (09:36)
[2021-10-12] MEDS: Lantus 1000 UNITS/10 ML VIAL SC SCH (09:36)
[2021-10-12] MEDS: Losartan 25 MG TAB PO SCH (09:36)
[2021-10-12] MEDS: HumaLOG 300 UNITS/3 ML VIAL SC SCH (09:36)
[2021-10-12 12:56] VITALS: BP 161/78; TEMP 98
== END 2021-10-12 14:09 | disposition home or self-care (01) ==
LOC: CSHERS 13:01 → CSHTELE 17:34
PROVIDERS: ADMIT Family Medicine; ATTEND Internal Medicine
DX: I63.9 Cerebral infarction, unspecified (principal); R53.1 Weakness; E78.2 Mixed hyperlipidemia; I25.118 Atherosclerotic heart disease of native coronary artery with other forms of angina pectoris; I12.9 Hypertensive chronic kidney disease with stage 1 through stage 4 chronic kidney disease, or unspecified chronic kidney disease; E11.22 Type 2 diabetes mellitus with diabetic chronic kidney disease; N18.4 Chronic kidney disease, stage 4 (severe); D63.1 Anemia in chronic kidney disease; Z20.822 Contact with and (suspected) exposure to COVID-19; Z79.82 Long term (current) use of aspirin; Z79.4 Long term (current) use of insulin; Z79.899 Other long term (current) drug therapy; Z91.040 Latex allergy status; Z88.8 Allergy status to other drugs, medicaments and biological substances; Z98.890 Other specified postprocedural states; I48.0 Paroxysmal atrial fibrillation; Z79.02 Long term (current) use of antithrombotics/antiplatelets; R26.89 Other abnormalities of gait and mobility; I25.2 Old myocardial infarction; E11.51 Type 2 diabetes mellitus with diabetic peripheral angiopathy without gangrene; E11.43 Type 2 diabetes mellitus with diabetic autonomic (poly)neuropathy; Z91.14 Patient's other noncompliance with medication regimen
CPT/HCPCS: 33285; 36415; 36416; 70450; 70496; 71045; 80048; 80053; 80061; 80307; 81003; 81015; 83036; 83605; 83735; 84443; 84484; 85025; 93005; 93306; 94760; 96372; C1764; G0378; J1644; J1815; Q9967; U0002

== ENCOUNTER 2021-11-01 19:22 | Inpatient (IN) | payer OTHER ==
[2021-11-01 20:07] LABS: #Basophils 0.1 10x3/uL (0.0-0.2); #Eosinphils 0.2 10x3/uL (0.0-0.5); #Monocytes 0.9 10x3/uL (0.0-1.1); #Neutrophils 6.4 10x3/uL (1.5-8.4); %Basophils 0.6 % (0.0-2.0); %Eosinophils 1.9 % (0.0-6.0); %Lymphocytes 29.8 % (18.0-47.0); %Neutrophils 59.4 % (40.0-75.0); Hemoglobin 11.8 g/dL (12.0-15.5); Mean Corpuscular HGB CONC 34.8 g/dL (32.0-36.0); Mean Corpuscular Hemoglobin 32.7 pg (27.0-33.0); Mean Corpuscular Volume 93.9 fl (81.6-98.3); Platelet Count 392 10x3/uL (150-450); RBC Distribution Width 11.8 % (11.5-14.5); Red Blood Cell (RBC) Count 3.61 10x6/uL (3.90-5.03); White Blood Cell (WBC) Count 10.8 10x3/uL (3.5-10.5)
[2021-11-01] MEDS ORDERED: Aspirin Chewable 81 MG TAB ONE (20:12)
[2021-11-01] MEDS ORDERED: Nitroglycerin 2% Ointment 1 INCH/1 GM Packet ONE (20:12)
[2021-11-01 20:19] LABS: ALT (SGPT) 14 U/L (8-55); AST (SGOT) 16 U/L (5-34); Albumin 4.6 g/dL (3.4-4.8); Alkaline Phosphatase 108 U/L (40-110); Anion Gap 16 mmol/L (10-20); BUN (Urea Nitrogen) 24 mg/dL (9.8-20.1); Bilirubin, Total 0.3 mg/dL (0.2-1.2); Calc. Creatinine Clearance 0 mL/min (70-130); Calcium 9.7 mg/dL (7.8-10.44); Carbon Dioxide 23 mmol/L (23-31); Chloride 95 mmol/L (98-107); Estimated GFR 39; Globulin 3.1 g/dL (2.4-3.5); Glucose 234 mg/dL (80-115); Lipase 29 U/L (8-78); Potassium 4.9 mmol/L (3.5-5.1); Protein, Total 7.7 g/dL (5.8-8.1); Sodium 129 mmol/L (136-145)
[2021-11-01] MEDS ORDERED: Morphine 4 MG/ML VIAL ONE (21:36)
[2021-11-01] MEDS ORDERED: Ondansetron PF 4 MG/2 ML Vial ONE (21:36)
[2021-11-02] MEDS ORDERED: Ondansetron ODT 4 MG TAB PO PRN (00:59)
[2021-11-02] MEDS ORDERED: traMADol HCl 50 MG TAB PO PRN (00:59)
[2021-11-02 01:59] LABS: Troponin I Less than 0.010 ng/mL (< 0.028)
[2021-11-02] MEDS ORDERED: Nitroglycerin 0.4 MG TAB (25 Tab Bottle) SL PRN (02:29)
[2021-11-02] MEDS ORDERED: hydrALAZINE 25 MG TAB PO PRN (02:38)
[2021-11-02] MEDS ORDERED: Lorazepam 2 MG/ML VIAL SLOW IVP SCH (02:45)
[2021-11-02] MEDS ORDERED: levETIRAcetam 500 MG TAB PO SCH (03:00)
[2021-11-02] MEDS: Nitroglycerin 2% Ointment 1 INCH/1 GM Packet TOP SCH ×3 (03:14→21:29)
[2021-11-02 03:39] VITALS: BMI 45.9
[2021-11-02 04:38] LABS: #Basophils 0.1 10x3/uL (0.0-0.2); #Eosinphils 0.3 10x3/uL (0.0-0.5); #Monocytes 0.9 10x3/uL (0.0-1.1); %Basophils 0.5 % (0.0-2.0); %Monocytes 7.2 % (0.0-10.0); Hemoglobin 10.8 g/dL (12.0-15.5); Mean Corpuscular HGB CONC 34.6 g/dL (32.0-36.0); Mean Corpuscular Hemoglobin 32.8 pg (27.0-33.0); Mean Corpuscular Volume 94.8 fl (81.6-98.3); Mean Platelet Volume 9.3 fl (7.4-10.4); Platelet Count 356 10x3/uL (150-450); RBC Distribution Width 11.9 % (11.5-14.5); Red Blood Cell (RBC) Count 3.29 10x6/uL (3.90-5.03); White Blood Cell (WBC) Count 12.8 10x3/uL (3.5-10.5)
[2021-11-02 04:55] LABS: Anion Gap 16 mmol/L (10-20); BUN (Urea Nitrogen) 29 mg/dL (9.8-20.1); Calc. Creatinine Clearance 62 mL/min (70-130); Calcium 9.5 mg/dL (7.8-10.44); Carbon Dioxide 25 mmol/L (23-31); Chloride 95 mmol/L (98-107); Estimated GFR 31; Glucose 249 mg/dL (80-115); Magnesium 1.7 mg/dL (1.6-2.6); Potassium 4.5 mmol/L (3.5-5.1); Sodium 131 mmol/L (136-145)
[2021-11-02 04:59] LABS: Troponin I Less than 0.010 ng/mL (< 0.028)
[2021-11-02 05:55] LABS: SARS-CoV-2 NAA Rapid Test Not Detected (NotDetected)
[2021-11-02] MEDS ORDERED: VITAMIN E 1000 UNIT PO SCH (09:00)
[2021-11-02] MEDS ORDERED: [UNRECOGNIZED DRUG - OTHER] PO SCH (09:00)
[2021-11-02] MEDS: Multivitamin W/ Minerals 1 TAB PO SCH (09:12)
[2021-11-02] MEDS: Flecainide 50 MG TAB PO SCH ×2 (09:13→21:17)
[2021-11-02] MEDS: Acetaminophen 500 MG TAB PO SCH ×2 (09:13→21:19)
[2021-11-02] MEDS: Aspirin 81 mg Enteric Coated Tablet PO SCH (09:14)
[2021-11-02] MEDS: Clopidogrel Bisulfate 75 MG TAB PO SCH (09:14)
[2021-11-02] MEDS: Bupropion 150 MG XL TAB PO SCH (09:14)
[2021-11-02] MEDS: levETIRAcetam 500 MG TAB PO SCH ×2 (09:15→21:16)
[2021-11-02] MEDS: Amlodipine 5 MG TAB PO SCH (09:15)
[2021-11-02] MEDS: Cholecalciferol 1,000 UNITS (25 MCG) TAB PO SCH (09:16)
[2021-11-02] MEDS: Glimepiride 2 MG TAB PO SCH (09:16)
[2021-11-02] MEDS: Enoxaparin Sodium 40 MG/0.4 ML SYRINGE SC SCH (09:17)
[2021-11-02] MEDS: Ferrous Sulfate 325 MG TAB PO SCH (09:17)
[2021-11-02] MEDS: HumaLOG 300 UNITS/3 ML VIAL SC SCH ×3 (09:18→17:30)
[2021-11-02] MEDS: Lantus 1000 UNITS/10 ML VIAL SC SCH (09:18)
[2021-11-02 10:02] LABS: D-Dimer Test 0.28 mg/L FEU (0.19-0.50); INR-International Normal Ratio 0.9
[2021-11-02 10:10] LABS: PTT 20.9 sec (22.0-33.0)
[2021-11-02 12:46] LABS: Hemoglobin A1c 8.9 % (4.0-6.0)
[2021-11-02 14:12] LABS: Bilirubin Neg (Negative); Blood, Urine Negative (Negative); Clarity Clear (Clear); Glucose, Urine (Dipstick) Normal (Negative); Ketone, Urine Negative (Negative); Leukocyte 100 (Negative); Nitrite Negative (Negative); Protein, Urine (Dipstick) 15 mg/dl (Neg-Trace); Urobilinogen Normal mg/dL (Less than 2)
[2021-11-02 14:24] LABS: Urine Culture Reflex No No
[2021-11-02 14:46] LABS: Bacteria/HPF 3+ HPF (None Seen); RBC/HPF None Seen HPF (0-3); Squamous Epithelial 0-3 HPF (0-3)
[2021-11-02] MEDS ORDERED: Lantus 1000 UNITS/10 ML VIAL SC SCH (21:00)
[2021-11-02] MEDS: Fish Oil 1,000 MG CAP PO SCH (21:16)
[2021-11-02] MEDS: DULoxetine 30 MG CAP PO SCH (21:17)
[2021-11-02] MEDS: Magnesium Oxide 400 MG TAB PO SCH (21:17)
[2021-11-02] MEDS: Cyclobenzaprine 10 MG TAB PO SCH (21:18)
[2021-11-02] MEDS: Zolpidem Tartrate 5 MG TAB PO SCH (21:18)
[2021-11-02] MEDS: Loratadine 10 MG TAB PO SCH (21:18)
[2021-11-02] MEDS: Atorvastatin Calcium 40 MG TAB PO SCH (21:19)
[2021-11-03] MEDS: Nitroglycerin 2% Ointment 1 INCH/1 GM Packet TOP SCH (03:40)
[2021-11-03 05:26] LABS: ALT (SGPT) 13 U/L (8-55); AST (SGOT) 15 U/L (5-34); Albumin 3.9 g/dL (3.4-4.8); Alkaline Phosphatase 82 U/L (40-110); Anion Gap 17 mmol/L (10-20); BUN (Urea Nitrogen) 36 mg/dL (9.8-20.1); Bilirubin, Direct 0.2 mg/dL (0.1-0.3); Bilirubin, Total 0.4 mg/dL (0.2-1.2); Calc. Creatinine Clearance 68 mL/min (70-130); Carbon Dioxide 23 mmol/L (23-31); Cardiac Risk 4.3 (Less than 4.5); Chloride 93 mmol/L (98-107); Cholesterol 132 mg/dl (< 200 Desired); Estimated GFR 34; Glucose 240 mg/dL (80-115); HDL Cholesterol 31 mg/dL (>60 Neg Risk); LDL Cholesterol, Calculated 51 mg/dL; Magnesium 1.7 mg/dL (1.6-2.6); Potassium 4.7 mmol/L (3.5-5.1); Sodium 128 mmol/L (136-145); Triglycerides 250 mg/dL (Less than 150)
[2021-11-03 05:30] LABS: #Eosinphils 0.2 10x3/uL (0.0-0.5); #Monocytes 0.9 10x3/uL (0.0-1.1); #Neutrophils 7.7 10x3/uL (1.5-8.4); %Basophils 0.4 % (0.0-2.0); %Eosinophils 1.7 % (0.0-6.0); %Lymphocytes 22.1 % (18.0-47.0); %Neutrophils 67.4 % (40.0-75.0); Hemoglobin 10.1 g/dL (12.0-15.5); Mean Corpuscular HGB CONC 35.6 g/dL (32.0-36.0); Mean Corpuscular Hemoglobin 32.5 pg (27.0-33.0); Mean Corpuscular Volume 91.3 fl (81.6-98.3); Mean Platelet Volume 9.2 fl (7.4-10.4); Platelet Count 304 10x3/uL (150-450); RBC Distribution Width 11.7 % (11.5-14.5); Red Blood Cell (RBC) Count 3.11 10x6/uL (3.90-5.03); White Blood Cell (WBC) Count 11.4 10x3/uL (3.5-10.5)
[2021-11-03] MEDS: Bupropion 150 MG XL TAB PO SCH (10:37)
[2021-11-03] MEDS: levETIRAcetam 500 MG TAB PO SCH ×2 (10:37→21:17)
[2021-11-03] MEDS: Enoxaparin Sodium 40 MG/0.4 ML SYRINGE SC SCH (10:37)
[2021-11-03] MEDS: Glimepiride 2 MG TAB PO SCH (10:38)
[2021-11-03] MEDS: Clopidogrel Bisulfate 75 MG TAB PO SCH (10:38)
[2021-11-03] MEDS: Acetaminophen 500 MG TAB PO SCH ×2 (10:38→21:20)
[2021-11-03] MEDS: Cholecalciferol 1,000 UNITS (25 MCG) TAB PO SCH (10:39)
[2021-11-03] MEDS: Amlodipine 5 MG TAB PO SCH (10:40)
[2021-11-03] MEDS: Multivitamin W/ Minerals 1 TAB PO SCH (10:40)
[2021-11-03] MEDS: Ferrous Sulfate 325 MG TAB PO SCH (10:40)
[2021-11-03] MEDS: HumaLOG 300 UNITS/3 ML VIAL SC SCH ×3 (10:41→17:55)
[2021-11-03] MEDS: Lantus 1000 UNITS/10 ML VIAL SC SCH ×2 (10:41→21:23)
[2021-11-03] MEDS: Aspirin 81 mg Enteric Coated Tablet PO SCH (10:51)
[2021-11-03] MEDS: Flecainide 50 MG TAB PO SCH ×2 (10:51→21:19)
[2021-11-03] MEDS: Ventolin HFA Inhaler 60 PUFF INHALER INH SCH ×3 (14:35→23:45)
[2021-11-03] MEDS: Fish Oil 1,000 MG CAP PO SCH (21:16)
[2021-11-03] MEDS: Cyclobenzaprine 10 MG TAB PO SCH (21:17)
[2021-11-03] MEDS: Zolpidem Tartrate 5 MG TAB PO SCH (21:17)
[2021-11-03] MEDS: DULoxetine 30 MG CAP PO SCH (21:18)
[2021-11-03] MEDS: Loratadine 10 MG TAB PO SCH (21:19)
[2021-11-03] MEDS: Magnesium Oxide 400 MG TAB PO SCH (21:19)
[2021-11-03] MEDS: Atorvastatin Calcium 40 MG TAB PO SCH (21:19)
[2021-11-04] MEDS: Ventolin HFA Inhaler 60 PUFF INHALER INH SCH ×3 (03:30→11:10)
[2021-11-04 05:08] LABS: #Basophils 0.1 10x3/uL (0.0-0.2); #Eosinphils 0.3 10x3/uL (0.0-0.5); #Monocytes 0.9 10x3/uL (0.0-1.1); #Neutrophils 5.9 10x3/uL (1.5-8.4); %Basophils 0.6 % (0.0-2.0); %Eosinophils 2.6 % (0.0-6.0); %Lymphocytes 26.4 % (18.0-47.0); %Monocytes 9.2 % (0.0-10.0); %Neutrophils 60.9 % (40.0-75.0); Hemoglobin 10.2 g/dL (12.0-15.5); Mean Corpuscular HGB CONC 34.5 g/dL (32.0-36.0); Mean Corpuscular Hemoglobin 32.4 pg (27.0-33.0); Mean Platelet Volume 9.3 fl (7.4-10.4); Platelet Count 344 10x3/uL (150-450); RBC Distribution Width 11.7 % (11.5-14.5); Red Blood Cell (RBC) Count 3.15 10x6/uL (3.90-5.03); White Blood Cell (WBC) Count 9.7 10x3/uL (3.5-10.5)
[2021-11-04 05:26] LABS: Anion Gap 14 mmol/L (10-20); BUN (Urea Nitrogen) 35 mg/dL (9.8-20.1); Calc. Creatinine Clearance 84 mL/min (70-130); Calcium 9.5 mg/dL (7.8-10.44); Carbon Dioxide 26 mmol/L (23-31); Chloride 96 mmol/L (98-107); Estimated GFR 44; Glucose 199 mg/dL (80-115); Magnesium 1.9 mg/dL (1.6-2.6); Potassium 4.7 mmol/L (3.5-5.1); Sodium 131 mmol/L (136-145)
[2021-11-04] MEDS ORDERED: Lantus 1000 UNITS/10 ML VIAL SC SCH (09:00)
[2021-11-04] MEDS: Enoxaparin Sodium 40 MG/0.4 ML SYRINGE SC SCH (10:12)
[2021-11-04] MEDS: Flecainide 50 MG TAB PO SCH (10:12)
[2021-11-04] MEDS: Glimepiride 2 MG TAB PO SCH (10:13)
[2021-11-04] MEDS: Acetaminophen 500 MG TAB PO SCH (10:14)
[2021-11-04] MEDS: Bupropion 150 MG XL TAB PO SCH (10:14)
[2021-11-04] MEDS: levETIRAcetam 500 MG TAB PO SCH (10:14)
[2021-11-04] MEDS: Amlodipine 5 MG TAB PO SCH (10:15)
[2021-11-04] MEDS: Ferrous Sulfate 325 MG TAB PO SCH (10:15)
[2021-11-04] MEDS: Multivitamin W/ Minerals 1 TAB PO SCH (10:15)
[2021-11-04] MEDS: Clopidogrel Bisulfate 75 MG TAB PO SCH (10:15)
[2021-11-04] MEDS: Aspirin 81 mg Enteric Coated Tablet PO SCH (10:17)
[2021-11-04] MEDS: Cholecalciferol 1,000 UNITS (25 MCG) TAB PO SCH (10:17)
[2021-11-04] MEDS: Lantus 1000 UNITS/10 ML VIAL SC SCH ×2 (10:17→10:19)
[2021-11-04] MEDS: HumaLOG 300 UNITS/3 ML VIAL SC SCH (10:18)
[2021-11-04 11:56] VITALS: BP 133/64; TEMP 97.9
== END 2021-11-04 11:40 | disposition home or self-care (01) | DRG 313 ==
LOC: CSHERS 19:22 → CSHTELE 11-02 00:30 → OBSVTOIN 11-04 07:45
PROVIDERS: ADMIT Family Medicine; ATTEND Family Medicine
DX: R07.2 Precordial pain (principal); I69.354 Hemiplegia and hemiparesis following cerebral infarction affecting left non-dominant side; K50.90 Crohn's disease, unspecified, without complications; E87.1 Hypo-osmolality and hyponatremia; J98.11 Atelectasis; Z68.42 Body mass index [BMI] 45.0-49.9, adult; I25.10 Atherosclerotic heart disease of native coronary artery without angina pectoris; I48.0 Paroxysmal atrial fibrillation; M06.9 Rheumatoid arthritis, unspecified; M45.9 Ankylosing spondylitis of unspecified sites in spine; G40.909 Epilepsy, unspecified, not intractable, without status epilepticus; I12.9 Hypertensive chronic kidney disease with stage 1 through stage 4 chronic kidney disease, or unspecified chronic kidney disease; E11.69 Type 2 diabetes mellitus with other specified complication; M54.9 Dorsalgia, unspecified; N18.32 Chronic kidney disease, stage 3b; E11.22 Type 2 diabetes mellitus with diabetic chronic kidney disease; I16.0 Hypertensive urgency; D72.829 Elevated white blood cell count, unspecified; E66.9 Obesity, unspecified; F41.9 Anxiety disorder, unspecified; F32.A Depression, unspecified; R11.2 Nausea with vomiting, unspecified; R10.11 Right upper quadrant pain; E11.65 Type 2 diabetes mellitus with hyperglycemia; Z20.822 Contact with and (suspected) exposure to COVID-19; I25.2 Old myocardial infarction; Z91.040 Latex allergy status; Z88.5 Allergy status to narcotic agent; Z79.899 Other long term (current) drug therapy; Z79.4 Long term (current) use of insulin; Z98.890 Other specified postprocedural states; Z98.51 Tubal ligation status
CPT/HCPCS: 36415; 36416; 71045; 76705; 80048; 80053; 80061; 80076; 81001; 83036; 83690; 83735; 84145; 84443; 84484; 85025; 85379; 85610; 85730; 86850; 86900; 86901; 87040; 87077; 87086; 87186; 87804; 93005; 93010; 93970; 94640; 94664; 94760; 96372; 96374; 96375; G0378; J1650; J1815; J2060; J2270; J2405; J7620; U0002

== ENCOUNTER 2022-04-12 13:41 | Inpatient (IN) | payer OTHER ==
[2022-04-12 14:44] LABS: #Basophils 0.1 10x3/uL (0.0-0.2); #Eosinphils 0.2 10x3/uL (0.0-0.5); #Monocytes 0.6 10x3/uL (0.0-1.1); #Neutrophils 5.1 10x3/uL (1.5-8.4); %Eosinophils 1.9 % (0.0-6.0); %Lymphocytes 24.8 % (18.0-47.0); %Monocytes 7.8 % (0.0-10.0); %Neutrophils 64.2 % (40.0-75.0); Hemoglobin 10.7 g/dL (12.0-15.5); Mean Corpuscular HGB CONC 32.7 g/dL (32.0-36.0); Mean Corpuscular Hemoglobin 31.6 pg (27.0-33.0); Mean Corpuscular Volume 96.5 fl (81.6-98.3); Platelet Count 425 10x3/uL (150-450); Red Blood Cell (RBC) Count 3.39 10x6/uL (3.90-5.03); White Blood Cell (WBC) Count 7.9 10x3/uL (3.5-10.5)
[2022-04-12 14:53] LABS: INR-International Normal Ratio 0.9; PTT 28.2 sec (22.0-33.0); Prothrombin Time 10.3 sec (9.5-12.1)
[2022-04-12 14:58] LABS: ALT (SGPT) 16 U/L (8-55); AST (SGOT) 15 U/L (5-34); Albumin 4.4 g/dL (3.4-4.8); Alkaline Phosphatase 93 U/L (40-110); Anion Gap 16 mmol/L (10-20); BUN (Urea Nitrogen) 30 mg/dL (9.8-20.1); Bilirubin, Total 0.2 mg/dL (0.2-1.2); Calc. Creatinine Clearance 0 mL/min (70-130); Calcium 9.7 mg/dL (7.8-10.44); Carbon Dioxide 18 mmol/L (23-31); Chloride 107 mmol/L (98-107); Estimated GFR 44; Globulin 3.1 g/dL (2.4-3.5); Glucose 90 mg/dL (80-115); Potassium 5.3 mmol/L (3.5-5.1); Protein, Total 7.5 g/dL (5.8-8.1); Sodium 136 mmol/L (136-145)
[2022-04-12] MEDS ORDERED: Ondansetron ODT 4 MG TAB PO PRN (16:00)
[2022-04-12] MEDS ORDERED: Acetaminophen 325 MG TAB PO PRN (16:00)
[2022-04-12] MEDS ORDERED: Ondansetron PF 4 MG/2 ML Vial IVP PRN (16:00)
[2022-04-12] MEDS ORDERED: Aspirin Chewable 81 MG TAB ONE (16:06)
[2022-04-12] MEDS ORDERED: HumaLOG 300 UNITS/3 ML VIAL SC PRN (16:07)
[2022-04-12] MEDS ORDERED: Dextrose 5% in Water 1,000 ML IV PRN (16:07)
[2022-04-12] MEDS ORDERED: Dextrose 50% Abboject 50 ML SYRINGE SLOW IVP PRN (16:07)
[2022-04-12 16:59] VITALS: BMI 47.2
[2022-04-12 16:59] LABS: SARS-CoV-2 NAA Rapid Test Not Detected (NotDetected)
[2022-04-12 17:06] LABS: Bilirubin Neg (Negative); Blood, Urine Negative (Negative); Clarity Clear (Clear); Glucose, Urine (Dipstick) Normal (Negative); Ketone, Urine Negative (Negative); Leukocyte Negative (Negative); Nitrite Positive (Negative); Protein, Urine (Dipstick) Negative (Neg-Trace); Urobilinogen Normal mg/dL (Less than 2)
[2022-04-12 17:13] LABS: RBC/HPF 0-3 HPF (0-3)
[2022-04-12 17:14] LABS: Bacteria/HPF 4+ HPF (None Seen); Squamous Epithelial 0-3 HPF (0-3)
[2022-04-12 17:19] LABS: Magnesium 1.8 mg/dL (1.6-2.6)
[2022-04-12] MEDS: cefTRIAXone\\ROCEPHIN 1 GM in Sodium Chloride 0.9% 100 ML IVPB SCH (22:08)
[2022-04-12 22:30] LABS: Hemoglobin A1c 7.1 % (4.0-6.0)
[2022-04-13] MEDS ORDERED: traMADol HCl 50 MG TAB PO SCH (04:45)
[2022-04-13 05:15] LABS: #Basophils 0.1 10x3/uL (0.0-0.2); #Eosinphils 0.2 10x3/uL (0.0-0.5); #Monocytes 0.8 10x3/uL (0.0-1.1); #Neutrophils 5.2 10x3/uL (1.5-8.4); %Basophils 0.8 % (0.0-2.0); %Eosinophils 1.6 % (0.0-6.0); %Lymphocytes 32.6 % (18.0-47.0); %Monocytes 8.1 % (0.0-10.0); %Neutrophils 56.6 % (40.0-75.0); Hemoglobin 10.7 g/dL (12.0-15.5); Mean Corpuscular HGB CONC 32.2 g/dL (32.0-36.0); Mean Corpuscular Hemoglobin 30.9 pg (27.0-33.0); Platelet Count 419 10x3/uL (150-450); Red Blood Cell (RBC) Count 3.46 10x6/uL (3.90-5.03); White Blood Cell (WBC) Count 9.3 10x3/uL (3.5-10.5)
[2022-04-13 05:35] LABS: Anion Gap 17 mmol/L (10-20); BUN (Urea Nitrogen) 27 mg/dL (9.8-20.1); Calc. Creatinine Clearance 91 mL/min (70-130); Calcium 9.7 mg/dL (7.8-10.44); Carbon Dioxide 19 mmol/L (23-31); Cardiac Risk 4.7 (Less than 4.5); Chloride 104 mmol/L (98-107); Cholesterol 159 mg/dl (< 200 Desired); Estimated GFR 46; Glucose 133 mg/dL (80-115); HDL Cholesterol 34 mg/dL (>60 Neg Risk); LDL Cholesterol, Calculated 92 mg/dL; Potassium 4.6 mmol/L (3.5-5.1); Sodium 135 mmol/L (136-145); Triglycerides 165 mg/dL (Less than 150)
[2022-04-13] MEDS ORDERED: Ventolin HFA Inhaler 60 PUFF INHALER INH PRN (07:44)
[2022-04-13] MEDS: Glimepiride 2 MG TAB PO SCH (08:49)
[2022-04-13] MEDS: Aspirin 81 mg Enteric Coated Tablet PO SCH (08:49)
[2022-04-13] MEDS: Flecainide 50 MG TAB PO SCH ×2 (08:49→21:03)
[2022-04-13] MEDS: Clopidogrel Bisulfate 75 MG TAB PO SCH (08:49)
[2022-04-13] MEDS: Bupropion 150 MG XL TAB PO SCH (08:49)
[2022-04-13] MEDS: levETIRAcetam 500 MG TAB PO SCH ×2 (08:49→21:02)
[2022-04-13] MEDS: HumaLOG 300 UNITS/3 ML VIAL SC PRN ×2 (12:20→17:19)
[2022-04-13] MEDS: Lantus 1000 UNITS/10 ML VIAL SC SCH (17:14)
[2022-04-13] MEDS: cefTRIAXone\\ROCEPHIN 1 GM in Sodium Chloride 0.9% 100 ML IVPB SCH (17:14)
[2022-04-13] MEDS: Zolpidem Tartrate 5 MG TAB PO SCH (21:00)
[2022-04-13] MEDS: Fish Oil 1,000 MG CAP PO SCH (21:00)
[2022-04-13] MEDS: DULoxetine 30 MG CAP PO SCH (21:01)
[2022-04-13] MEDS: Atorvastatin Calcium 40 MG TAB PO SCH (21:02)
[2022-04-13] MEDS: Loratadine 10 MG TAB PO SCH (21:02)
[2022-04-13] MEDS: traMADol HCl 50 MG TAB PO PRN (21:06)
[2022-04-14 05:03] LABS: #Basophils 0.1 10x3/uL (0.0-0.2); #Eosinphils 0.2 10x3/uL (0.0-0.5); #Neutrophils 7.9 10x3/uL (1.5-8.4); %Basophils 0.6 % (0.0-2.0); %Eosinophils 1.5 % (0.0-6.0); %Lymphocytes 19.9 % (18.0-47.0); %Monocytes 8.8 % (0.0-10.0); %Neutrophils 68.9 % (40.0-75.0); Hemoglobin 10.1 g/dL (12.0-15.5); Mean Corpuscular HGB CONC 33.7 g/dL (32.0-36.0); Mean Corpuscular Hemoglobin 31.4 pg (27.0-33.0); Mean Corpuscular Volume 93.2 fl (81.6-98.3); Mean Platelet Volume 8.9 fl (7.4-10.4); Platelet Count 387 10x3/uL (150-450); RBC Distribution Width 12.5 % (11.5-14.5); Red Blood Cell (RBC) Count 3.22 10x6/uL (3.90-5.03); White Blood Cell (WBC) Count 11.5 10x3/uL (3.5-10.5)
[2022-04-14 05:17] LABS: Anion Gap 17 mmol/L (10-20); BUN (Urea Nitrogen) 32 mg/dL (9.8-20.1); Calc. Creatinine Clearance 80 mL/min (70-130); Calcium 9.5 mg/dL (7.8-10.44); Carbon Dioxide 17 mmol/L (23-31); Chloride 103 mmol/L (98-107); Estimated GFR 40; Glucose 221 mg/dL (80-115); Potassium 4.5 mmol/L (3.5-5.1); Sodium 132 mmol/L (136-145)
[2022-04-14] MEDS: HumaLOG 300 UNITS/3 ML VIAL SC PRN ×2 (06:31→11:52)
[2022-04-14] MEDS: traMADol HCl 50 MG TAB PO PRN ×2 (08:49→21:00)
[2022-04-14] MEDS: Aspirin 81 mg Enteric Coated Tablet PO SCH (08:50)
[2022-04-14] MEDS: levETIRAcetam 500 MG TAB PO SCH ×2 (08:50→21:00)
[2022-04-14] MEDS: Clopidogrel Bisulfate 75 MG TAB PO SCH (08:50)
[2022-04-14] MEDS: Glimepiride 2 MG TAB PO SCH (08:50)
[2022-04-14] MEDS: Flecainide 50 MG TAB PO SCH ×2 (08:50→21:00)
[2022-04-14] MEDS: Lantus 1000 UNITS/10 ML VIAL SC SCH ×2 (08:51→17:12)
[2022-04-14] MEDS: Bupropion 150 MG XL TAB PO SCH (08:51)
[2022-04-14] MEDS: HumaLOG 300 UNITS/3 ML VIAL SC SCH ×2 (11:52→17:13)
[2022-04-14] MEDS: cefTRIAXone\\ROCEPHIN 1 GM in Sodium Chloride 0.9% 100 ML IVPB SCH (18:15)
[2022-04-14] MEDS: Loratadine 10 MG TAB PO SCH (21:00)
[2022-04-14] MEDS: Fish Oil 1,000 MG CAP PO SCH (21:00)
[2022-04-14] MEDS: Zolpidem Tartrate 5 MG TAB PO SCH (21:00)
[2022-04-14] MEDS: Metoprolol Tartrate 50 MG TAB PO SCH (21:00)
[2022-04-14] MEDS: Atorvastatin Calcium 40 MG TAB PO SCH (21:00)
[2022-04-14] MEDS: DULoxetine 30 MG CAP PO SCH (21:00)
[2022-04-15 05:02] LABS: #Basophils 0.1 10x3/uL (0.0-0.2); #Eosinphils 0.2 10x3/uL (0.0-0.5); #Monocytes 0.8 10x3/uL (0.0-1.1); #Neutrophils 6.1 10x3/uL (1.5-8.4); %Basophils 0.5 % (0.0-2.0); %Lymphocytes 22.1 % (18.0-47.0); %Monocytes 8.5 % (0.0-10.0); %Neutrophils 66.7 % (40.0-75.0); Hemoglobin 10.1 g/dL (12.0-15.5); Mean Corpuscular HGB CONC 33.3 g/dL (32.0-36.0); Mean Corpuscular Hemoglobin 31.6 pg (27.0-33.0); Mean Corpuscular Volume 94.7 fl (81.6-98.3); Mean Platelet Volume 10.2 fl (7.4-10.4); Platelet Count 387 10x3/uL (150-450); RBC Distribution Width 12.7 % (11.5-14.5); White Blood Cell (WBC) Count 9.2 10x3/uL (3.5-10.5)
[2022-04-15 08:01] LABS: Anion Gap 14 mmol/L (10-20); BUN (Urea Nitrogen) 25 mg/dL (9.8-20.1); Calc. Creatinine Clearance 94 mL/min (70-130); Calcium 9.5 mg/dL (7.8-10.44); Carbon Dioxide 22 mmol/L (23-31); Chloride 105 mmol/L (98-107); Estimated GFR 48; Glucose 174 mg/dL (80-115); Potassium 4.6 mmol/L (3.5-5.1); Sodium 136 mmol/L (136-145)
[2022-04-15] MEDS: Lantus 1000 UNITS/10 ML VIAL SC SCH (08:20)
[2022-04-15] MEDS: HumaLOG 300 UNITS/3 ML VIAL SC SCH ×2 (08:20→12:11)
[2022-04-15] MEDS: Aspirin 81 mg Enteric Coated Tablet PO SCH (08:22)
[2022-04-15] MEDS: Bupropion 150 MG XL TAB PO SCH (08:22)
[2022-04-15] MEDS: Clopidogrel Bisulfate 75 MG TAB PO SCH (08:22)
[2022-04-15] MEDS: Metoprolol Tartrate 50 MG TAB PO SCH (08:22)
[2022-04-15] MEDS: Glimepiride 2 MG TAB PO SCH (08:23)
[2022-04-15] MEDS: levETIRAcetam 500 MG TAB PO SCH (08:23)
[2022-04-15] MEDS: Flecainide 50 MG TAB PO SCH (08:24)
[2022-04-15 12:32] VITALS: BP 169/71; TEMP 98.1
== END 2022-04-15 14:10 | disposition home or self-care (01) | DRG 69 ==
LOC: CSHERS 13:41 → INTOOBSV 16:23 → CSHTELE 16:23 → OBSVTOIN 04-14 16:35
PROVIDERS: ADMIT Internal Medicine; ATTEND Internal Medicine
DX: G45.9 Transient cerebral ischemic attack, unspecified (principal); I13.0 Hypertensive heart and chronic kidney disease with heart failure and stage 1 through stage 4 chronic kidney disease, or unspecified chronic kidney disease; I50.32 Chronic diastolic (congestive) heart failure; N39.0 Urinary tract infection, site not specified; G81.94 Hemiplegia, unspecified affecting left nondominant side; Z68.42 Body mass index [BMI] 45.0-49.9, adult; Z20.822 Contact with and (suspected) exposure to COVID-19; I48.0 Paroxysmal atrial fibrillation; E11.22 Type 2 diabetes mellitus with diabetic chronic kidney disease; M06.9 Rheumatoid arthritis, unspecified; G40.909 Epilepsy, unspecified, not intractable, without status epilepticus; N18.30 Chronic kidney disease, stage 3 unspecified; F41.1 Generalized anxiety disorder; G47.00 Insomnia, unspecified; R29.700 NIHSS score 0; I48.91 Unspecified atrial fibrillation; E78.2 Mixed hyperlipidemia; E66.01 Morbid (severe) obesity due to excess calories; I25.118 Atherosclerotic heart disease of native coronary artery with other forms of angina pectoris; M79.7 Fibromyalgia; M19.90 Unspecified osteoarthritis, unspecified site; G51.0 Bell's palsy; I25.2 Old myocardial infarction; Z79.4 Long term (current) use of insulin; Z79.02 Long term (current) use of antithrombotics/antiplatelets; Z88.8 Allergy status to other drugs, medicaments and biological substances; Z91.041 Radiographic dye allergy status; Z91.040 Latex allergy status; Z79.899 Other long term (current) drug therapy; Z79.82 Long term (current) use of aspirin; Z98.51 Tubal ligation status; Z86.16 Personal history of COVID-19
CPT/HCPCS: 36415; 36416; 70450; 80048; 80053; 80061; 81003; 81015; 83036; 83735; 84443; 84484; 85025; 85610; 85730; 87077; 87086; 87186; 93005; 94760; 96374; 96376; G0378; J0696; J1815; J3490; U0002

== ENCOUNTER 2022-10-21 17:26 | Observation (INO) | payer OTHER ==
[2022-10-21 19:07] LABS: #Basophils 0.1 10x3/uL (0.0-0.2); #Eosinphils 0.2 10x3/uL (0.0-0.5); #Monocytes 0.8 10x3/uL (0.0-1.1); #Neutrophils 4.5 10x3/uL (1.5-8.4); %Basophils 0.9 % (0.0-2.0); %Eosinophils 2.8 % (0.0-6.0); %Lymphocytes 27.6 % (18.0-47.0); %Monocytes 10.9 % (0.0-10.0); %Neutrophils 57.5 % (40.0-75.0); Hematocrit 31.1 % (34.9-44.5); Hemoglobin 10.1 g/dL (12.0-15.5); Mean Corpuscular HGB CONC 32.5 g/dL (32.0-36.0); Mean Corpuscular Hemoglobin 32.1 pg (27.0-33.0); Mean Corpuscular Volume 98.7 fl (81.6-98.3); Mean Platelet Volume 8.4 fl (7.4-10.4); Platelet Count 360 10x3/uL (150-450); RBC Distribution Width 13.7 % (11.5-14.5); Red Blood Cell (RBC) Count 3.15 10x6/uL (3.90-5.03); White Blood Cell (WBC) Count 7.7 10x3/uL (3.5-10.5)
[2022-10-21 19:18] LABS: ALT (SGPT) 22 U/L (8-55); AST (SGOT) 20 U/L (5-34); Albumin 4.4 g/dL (3.4-4.8); Alkaline Phosphatase 91 U/L (40-110); Anion Gap 14 mmol/L (10-20); BUN (Urea Nitrogen) 28 mg/dL (9.8-20.1); Bilirubin, Total 0.3 mg/dL (0.2-1.2); Calc. Creatinine Clearance 0 mL/min (70-130); Carbon Dioxide 25 mmol/L (23-31); Chloride 101 mmol/L (98-107); Estimated GFR 44; Globulin 3.4 g/dL (2.4-3.5); Glucose 77 mg/dL (80-115); Lipase 16 U/L (8-78); Protein, Total 7.8 g/dL (5.8-8.1); Sodium 135 mmol/L (136-145)
[2022-10-21 19:24] LABS: Troponin I Less than 0.010 ng/mL (< 0.028)
[2022-10-21 20:20] LABS: Bilirubin Neg (Negative); Blood, Urine Negative (Negative); Clarity Clear (Clear); Glucose, Urine (Dipstick) Normal (Negative); Ketone, Urine Negative (Negative); Leukocyte 100 (Negative); Nitrite Negative (Negative); Protein, Urine (Dipstick) 30 mg/dl (Neg-Trace); Specific Gravity, Urine 1.005 (1.005-1.030); Urobilinogen Normal mg/dL (Less than 2); pH, Urine 6.5 (5.0-9.0)
[2022-10-21 20:30] LABS: CAUTI Indications for Culture Pelvic or flank pain; RBC/HPF 0-3 HPF (0-3)
[2022-10-21 20:31] LABS: Bacteria/HPF 1+ HPF (None Seen); Urine Culture Reflex No No
[2022-10-21 20:48] LABS: SARS-CoV-2 NAA Rapid Test Not Detected (NotDetected)
[2022-10-21] MEDS ORDERED: Morphine 4 MG/ML VIAL ONE (22:18)
[2022-10-21] MEDS ORDERED: Ondansetron PF 4 MG/2 ML Vial ONE (22:18)
[2022-10-21 23:24] LABS: Troponin I 0.015 ng/mL (< 0.028)
[2022-10-22 01:56] VITALS: BMI 51.3
[2022-10-22] MEDS ORDERED: Guaifenesin DM 100-10/5 ML UDCUP PO PRN (02:05)
[2022-10-22] MEDS ORDERED: Glucagon 1 MG/ML KIT IM PRN (02:05)
[2022-10-22] MEDS ORDERED: Calcium Carbonate 500 MG ChewTAB PO PRN (02:05)
[2022-10-22] MEDS ORDERED: Senokot S 8.6-50 MG TAB PO PRN (02:05)
[2022-10-22] MEDS ORDERED: Dextrose 5% in Water 1,000 ML IV PRN (02:05)
[2022-10-22] MEDS ORDERED: Ondansetron PF 4 MG/2 ML Vial IVP PRN (02:05)
[2022-10-22] MEDS ORDERED: Acetaminophen 325 MG TAB PO PRN (02:05)
[2022-10-22] MEDS ORDERED: Dextrose 50% Abboject 50 ML SYRINGE SLOW IVP PRN (02:05)
[2022-10-22] MEDS ORDERED: predniSONE 20 MG TAB PO SCH (02:15)
[2022-10-22] MEDS ORDERED: Ipratropium/Albuterol 3 ML NEB NEB SCH (02:15)
[2022-10-22] MEDS ORDERED: levETIRAcetam 500 MG TAB PO SCH (03:00)
[2022-10-22] MEDS: Oxymetazoline HCl 0.05% ( 15 ML ) NASAL SCH ×2 (03:01→14:13)
[2022-10-22] MEDS: HumaLOG 300 UNITS/3 ML VIAL SC PRN ×5 (03:02→21:36)
[2022-10-22 03:48] LABS: Anion Gap 14 mmol/L (10-20); BUN (Urea Nitrogen) 28 mg/dL (9.8-20.1); Calc. Creatinine Clearance 87 mL/min (70-130); Calcium 9.4 mg/dL (7.8-10.44); Carbon Dioxide 24 mmol/L (23-31); Chloride 100 mmol/L (98-107); Estimated GFR 40; Glucose 226 mg/dL (80-115); Potassium 4.7 mmol/L (3.5-5.1); Sodium 133 mmol/L (136-145)
[2022-10-22 03:59] LABS: Troponin I Less than 0.010 ng/mL (< 0.028)
[2022-10-22 05:58] LABS: Troponin I Less than 0.010 ng/mL (< 0.028)
[2022-10-22] MEDS: Ipratropium/Albuterol 3 ML NEB NEB PRN ×2 (08:15→14:10)
[2022-10-22] MEDS: Benzonatate 100 MG CAP PO SCH ×3 (08:44→21:33)
[2022-10-22] MEDS: Glimepiride 2 MG TAB PO SCH (08:44)
[2022-10-22] MEDS: Clopidogrel Bisulfate 75 MG TAB PO SCH (08:44)
[2022-10-22] MEDS: Cholecalciferol 1,000 UNITS (25 MCG) TAB PO SCH (08:44)
[2022-10-22] MEDS: Amlodipine 5 MG TAB PO SCH (08:44)
[2022-10-22] MEDS: Flecainide 50 MG TAB PO SCH ×2 (08:45→21:36)
[2022-10-22] MEDS: Aspirin 81 mg Enteric Coated Tablet PO SCH (08:45)
[2022-10-22] MEDS: Bupropion 150 MG XL TAB PO SCH (08:45)
[2022-10-22] MEDS: Ferrous Sulfate 325 MG TAB PO SCH (08:45)
[2022-10-22] MEDS ORDERED: [UNRECOGNIZED DRUG - OTHER] PO SCH (09:00)
[2022-10-22] MEDS ORDERED: VITAMIN E 1000 UNIT PO SCH (09:00)
[2022-10-22] MEDS ORDERED: [UNRECOGNIZED DRUG - REMARK] PO SCH (09:00)
[2022-10-22] MEDS: Mometasone/Formoterol 200/5 60 PUFF INH SCH ×2 (09:22→19:03)
[2022-10-22] MEDS ORDERED: Lantus 1000 UNITS/10 ML VIAL SC SCH (09:45)
[2022-10-22] MEDS: traMADol HCl 50 MG TAB PO PRN ×2 (11:59→21:33)
[2022-10-22 12:51] LABS: Hemoglobin A1c 5.8 % (4.0-6.0)
[2022-10-22] MEDS ORDERED: Losartan 25 MG TAB PO SCH (13:15)
[2022-10-22] MEDS: levETIRAcetam 500 MG TAB PO SCH (17:25)
[2022-10-22] MEDS ORDERED: DULoxetine 30 MG CAP PO SCH (21:00)
[2022-10-22] MEDS ORDERED: Loratadine 10 MG TAB PO SCH (21:00)
[2022-10-22] MEDS ORDERED: Zolpidem Tartrate 5 MG TAB PO SCH (21:00)
[2022-10-22] MEDS ORDERED: Magnesium Oxide 400 MG TAB PO SCH (21:00)
[2022-10-22] MEDS ORDERED: Fish Oil 1,000 MG CAP PO SCH (21:00)
[2022-10-22] MEDS ORDERED: Atorvastatin Calcium 40 MG TAB PO SCH (21:00)
[2022-10-22] MEDS: Lantus 1000 UNITS/10 ML VIAL SC SCH (21:36)
[2022-10-23] MEDS: Oxymetazoline HCl 0.05% ( 15 ML ) NASAL SCH (02:10)
[2022-10-23] MEDS: levETIRAcetam 500 MG TAB PO SCH (05:45)
[2022-10-23] MEDS: Mometasone/Formoterol 200/5 60 PUFF INH SCH (07:15)
[2022-10-23] MEDS: Lantus 1000 UNITS/10 ML VIAL SC SCH (08:37)
[2022-10-23] MEDS: Benzonatate 100 MG CAP PO SCH (08:37)
[2022-10-23] MEDS: Aspirin 81 mg Enteric Coated Tablet PO SCH (08:37)
[2022-10-23] MEDS: Clopidogrel Bisulfate 75 MG TAB PO SCH (08:38)
[2022-10-23] MEDS: Ferrous Sulfate 325 MG TAB PO SCH (08:38)
[2022-10-23] MEDS: Flecainide 50 MG TAB PO SCH (08:38)
[2022-10-23] MEDS: Amlodipine 5 MG TAB PO SCH (08:38)
[2022-10-23] MEDS: Cholecalciferol 1,000 UNITS (25 MCG) TAB PO SCH (08:38)
[2022-10-23] MEDS: Bupropion 150 MG XL TAB PO SCH (08:38)
[2022-10-23] MEDS: traMADol HCl 50 MG TAB PO PRN (08:38)
[2022-10-23] MEDS: Glimepiride 2 MG TAB PO SCH (08:39)
[2022-10-23] MEDS ORDERED: Losartan 25 MG TAB PO SCH ×2 (09:00→09:30)
[2022-10-23] MEDS: HumaLOG 300 UNITS/3 ML VIAL SC PRN (12:13)
[2022-10-23 12:52] VITALS: BP 146/65; TEMP 97.9
== END 2022-10-23 13:45 | disposition home or self-care (01) ==
LOC: CSHERS 17:26 → CSHTELE 10-22 01:37
PROVIDERS: ADMIT Student in an Organized Health Care Education/Training Program; ATTEND Internal Medicine
DX: R06.02 Shortness of breath (principal); R07.9 Chest pain, unspecified; I13.0 Hypertensive heart and chronic kidney disease with heart failure and stage 1 through stage 4 chronic kidney disease, or unspecified chronic kidney disease; I50.32 Chronic diastolic (congestive) heart failure; N18.30 Chronic kidney disease, stage 3 unspecified; E11.22 Type 2 diabetes mellitus with diabetic chronic kidney disease; D63.1 Anemia in chronic kidney disease; F41.8 Other specified anxiety disorders; K21.9 Gastro-esophageal reflux disease without esophagitis; I48.0 Paroxysmal atrial fibrillation; E78.5 Hyperlipidemia, unspecified; M19.90 Unspecified osteoarthritis, unspecified site; I25.10 Atherosclerotic heart disease of native coronary artery without angina pectoris; E66.01 Morbid (severe) obesity due to excess calories; Z68.43 Body mass index [BMI] 50.0-59.9, adult; Z86.73 Personal history of transient ischemic attack (TIA), and cerebral infarction without residual deficits; Z91.040 Latex allergy status; Z91.041 Radiographic dye allergy status; Z88.8 Allergy status to other drugs, medicaments and biological substances; Z79.4 Long term (current) use of insulin; Z79.899 Other long term (current) drug therapy; Z79.84 Long term (current) use of oral hypoglycemic drugs
CPT/HCPCS: 36416; 71045; 71275; 74174; 74177; 80048; 80053; 81001; 83036; 83605; 83690; 83880; 84443; 84484; 85025; 87077; 87086; 87186; 87633; 93005; 94640; 94664; 94760; 96372; 96374; 96375; G0378; J1650; J1815; J2270; J2405; J7512; J7620; U0002

== ENCOUNTER 2023-11-27 11:30 | Emergency (ER) | payer BC ==
[2023-11-27 12:55] LABS: MONO NEGATIVE CONTROL ZONE White (Negative) (White); Mononucleosis NEGATIVE (NEGATIVE)
[2023-11-27 12:56] LABS: MONO POSITIVE CONTROL Pink Line (Positive) (PINK/RED)
[2023-11-27 12:57] LABS: #Basophils 0.06 10x3/uL (0.0-0.2); #Eosinophils 0.15 10x3/uL (0.0-0.5); #Monocytes 1.05 10x3/uL (0.0-1.1); #Neutrophils 6.84 10x3/uL (1.5-8.4); %Basophils 0.6 % (0.0-2.0); %Eosinophils 1.5 % (0.0-6.0); %Lymphocytes 16.5 % (18.0-47.0); %Monocytes 10.6 % (0.0-10.0); %Neutrophils 69.4 % (40.0-75.0); Hematocrit 25.2 % (34.9-44.5); Hemoglobin 9.2 g/dL (12.0-15.5); Mean Corpuscular HGB CONC 36.5 g/dL (32.0-36.0); Mean Corpuscular Hemoglobin 32.5 pg (27.0-33.0); Platelet Count 524 10x3/uL (150-450); Red Blood Cell (RBC) Count 2.83 10x6/uL (3.90-5.03); White Blood Cell (WBC) Count 9.9 10x3/uL (3.5-10.5)
[2023-11-27 13:00] LABS: ALT (SGPT) 333 U/L (8-55); AST (SGOT) 375 U/L (5-34); Albumin 2.4 g/dL (3.4-4.8); Alkaline Phosphatase 879 U/L (40-110); Anion Gap 16 mmol/L (10-20); BUN (Urea Nitrogen) 17 mg/dL (9.8-20.1); Bilirubin, Total 21.3 mg/dL (0.2-1.2); Calc. Creatinine Clearance 0 mL/min (70-130); Calcium 10.4 mg/dL (7.8-10.44); Carbon Dioxide 20 mmol/L (23-31); Chloride 89 mmol/L (98-107); Estimated GFR 50; Globulin 4.8 g/dL (2.4-3.5); Glucose 153 mg/dL (80-115); Potassium 4.3 mmol/L (3.5-5.1); Protein, Total 7.2 g/dL (5.8-8.1); Sodium 121 mmol/L (136-145)
[2023-11-27 13:01] LABS: Acetaminophen 27 mcg/mL (Less than 10); Alcohol Less than 10.0 mg/dL (Less than 10); Lipase 21 U/L (8-78); Magnesium 1.6 mg/dL (1.6-2.6); Salicylate Less than 8.0 mg/dL (Less than 8.0)
[2023-11-27 13:42] LABS: Bilirubin Unable to Interpret (Negative); Blood, Urine Unable to Interpret (Negative); Clarity Clear (Clear); Glucose, Urine (Dipstick) Unable to Interpret mg/dL (Negative); Ketone, Urine Unable to Interpret mg/dL (Negative); Leukocyte Unable to Interpret (Negative); Nitrite Unable to Interpret (Negative); Protein, Urine (Dipstick) Unable to Interpret mg/dl (Neg-Trace); Urobilinogen UNABLE TO INTERPRET mg/dL (Less than 2)
[2023-11-27 14:13] LABS: Bacteria/HPF 4+ HPF (None Seen); CAUTI Indications for Culture Pelvic or flank pain; RBC/HPF 0-3 HPF (0-3)
[2023-11-27 14:14] LABS: Urine Culture Reflex No No
[2023-11-27] MEDS ORDERED: Acetylcysteine 20% (200mg/mL) 15,000 MG in Dextrose 5% in Water 200 ML IV SCH (14:15)
[2023-11-28 01:19] LABS: Hep B Core IgM Index 0.09 S/CO (0-0.79); Hepatitis B Core IgM Abs NONREACTIVE S/CO (NonReactive)
[2023-11-28 01:20] LABS: HBsAg Index 0.31 S/CO (0-0.99); Hep B Surf Ag NONREACTIVE S/CO (NonReactive)
[2023-11-28 01:21] LABS: Hep A IgM AB NONREACTIVE (NonReactive); Hep A IgM S/CO 0.13 S/CO (0-0.79)
[2023-11-28 03:10] LABS: Hep C IgG Ab NONREACTIVE S/CO (NonReactive); Hep C Index 0.08 S/CO (0-0.79)
== END 2023-11-27 16:49 | disposition short-term general hospital (02) ==
LOC: CSHERS 11:30
DX: K83.1 Obstruction of bile duct (principal); E87.1 Hypo-osmolality and hyponatremia; R17 Unspecified jaundice; E11.22 Type 2 diabetes mellitus with diabetic chronic kidney disease; N18.6 End stage renal disease; I12.0 Hypertensive chronic kidney disease with stage 5 chronic kidney disease or end stage renal disease; Z55.6 Problems related to health literacy; Z86.73 Personal history of transient ischemic attack (TIA), and cerebral infarction without residual deficits
CPT/HCPCS: 36415; 36416; 74176; 80053; 80074; 80143; 80307; 81001; 82140; 83690; 83735; 83880; 85025; 86308; 96365; 96366; J0132; J7070